=== PATIENT | female | born 1945 | race Caucasian/White ===

== ENCOUNTER 2018-09-21 00:36 | Outpatient (CLI) | payer MEDICARE, BC, SELFPAY ==
--- NOTE | 2018-09-21 08:30 | DI.MAMMO_ITS ---
SYMPTOM/DIAGNOSIS: SCREENING, Z12.31 MAMMOGRAMS: Mammograms were interpreted according to the usual protocol including computer analysis with CAD system, tomosynthesis and C view imaging. Comparison is made with prior examinations. Breast density, Category B. No suspicious masses or microcalcifications are seen. There is no definite evidence of malignancy. IMPRESSION: Negative mammogram. Routine screening is recommended. Category 1. MQSA ASSESSMENT OF FINDINGS: Negative. Category 1. Patient will receive a letter notifying them of these results. BI-RADS category B. There are scattered areas of fibroglandular density.
== END 2018-09-21 00:56 ==
PROVIDERS: PCP Family Medicine; Visit Provider Nurse Practitioner Family
DX: Z12.31 Encounter for screening mammogram for malignant neoplasm of breast (principal)
CPT/HCPCS: 77063; 77067

== ENCOUNTER 2019-02-06 11:38 | Outpatient (REF) | payer MEDICARE, BC, SELFPAY ==
--- NOTE | 2019-02-06 10:44 | SKI_PTH ---
PATIENT: Suyapa Oropeza LOC: [facility] U#:[id number] AGE/SX: 73/F ROOM: RE02/06/[address]: Jhonatan Castro DO : 1945 BED: DIS: 02/06/2019 SPEC #: [id number] RECD: 02/06/19 17:55 STATUS: YURIY REQ #: [id number] MARCELLA: 02/06/19 10:[address]: Jhonatan Castro DEPT: Surgical Specimen RECD BY: July Lopez ENTERED: 02/06/19 17:56 SP TYPE: ESPINOZA WERNER DR: Alpesh Snowden MD Tissues: 1 - SKIN BIOPSY(SHAVE/PUNCH) Procedures: SKIN LEVEL 4 Comments: [id number]
== END 2019-02-06 11:58 ==
LOC: LBN 11:38
PROVIDERS: PCP Family Medicine; Referring Provider Family Medicine; Visit Provider Otolaryngology Otolaryngology/Facial Plastic Surgery
DX: C44.319 Basal cell carcinoma of skin of other parts of face (principal)
CPT/HCPCS: 88305

== ENCOUNTER → 2019-07-03 13:20 | Outpatient (BNVA) | payer MEDICARE, BC, SELFPAY | PROVIDERS: PCP Family Medicine; Referring Provider Family Medicine; Visit Provider Surgery | DX: K40.90 Unilateral inguinal hernia, without obstruction or gangrene, not specified as recurrent (principal) | CPT/HCPCS: 99204; 99215 ==

== ENCOUNTER 2019-07-04 09:13 | Day surgery (SDC) | payer MEDICARE, BC, SELFPAY ==
[2019-07-04] VITALS (7 sets, daily range): BP systolic 94–142; BP diastolic 49–78; PULSE 68–83; RESP 16–24; TEMP 36–36.9; O2SAT 96–100
[2019-07-04] MEDS: Lactated Ringers 1,000 ML 80 ML IV ×2 (10:00→12:38)
--- NOTE | 2019-07-04 10:54 | PDOC.DSDIS_ITS ---
Discharge Plan Disposition Patient Disposition: HOME Condition: Good Discharge Details Reason For Visit: (R) Femoral hernia Attending Provider: Karyn Heredia Primary Care Provider: Alpesh Snowden Home Meds and New Rx's Prescriptions: New hydrocodone-acetaminophen 5-325 mg Tablet 1 tab PO Q4H PRN (Reason: Pain) Qty: 12 RF: 0 Continued multivitamin [Daily Multi-Vitamin] 1 EACH tablet 1 ea PO DAILY RF: 0 aspirin [Aspir-81] 81 mg Tablet,Delayed Release (Dr/Ec) 81 mg PO PRN PRNRF: 0 Discharge Instructions Additional Instructions: The top bandage can be removed tomorrow. The steri strips will usually stick for about a week. When the edges start to curl up, they can be removed. It is okay to shower tomorrow, the water can run over the steri strips Do not swim or soak in a tub for two weeks Call for any concerns including fever, increased pain, vomiting, incision redness or drainage. Do not lift more than 15 pounds for four weeks. Walking and stairs are fine. Do not drive if on narcotic pain meds or if limited by pain. May use Tylenol alternating with ibuprofen for pain control. Ice is also an option. The maximum dose for Tylenol is 4000 mg/day. May use ibuprofen 800 mg every 8 hours as needed. If concerned about constipation, you may use a stool softener or milk of magnesia. Referrals: Karyn Heredia MD [ [facility] STAFF PHYSICIAN] - (Return for a postop visit in 10-14 days) Activity:: Do not lift more than 15 pounds Remove Dressings/Wound Care:: 24 hours Shower/Bathe:: 24 hours Diet:: As Tolerated Discharge Orders Discharge Orders: Discharge Order (Routine); Ordered 07/04/19 Ordered By: Karyn Heredia DS: Diagnosis Discharge Diagnosis (1) Irreducible right femoral hernia: Status: Acute
[2019-07-04] MEDS: Bupivacaine 0.25% Pres-Free 30 ML VIAL (11:50)
[2019-07-04] MEDS: Bupivacaine LIPOSOME/PF 133 MG/10 ML VIAL IJ (11:50)
[2019-07-04] MEDS: ceFAZolin 2 GM/50 ML BAG IVPB (12:07)
--- NOTE | 2019-07-06 10:48 | ROE_ITS ---
REPORT OF OPERATIVE PROCEDURE DATE OF PROCEDURE July 04, 2019 PREOPERATIVE DIAGNOSIS Right inguinal hernia. POSTOPERATIVE DIAGNOSIS Incarcerated right femoral hernia. PROCEDURE Right femoral hernia repair with mesh. SURGEON Karyn Heredia M.D. EXTRUSION DIE COORDINATOR Kerry Yuen ANESTHESIA TAP block, local and general. INDICATIONS This is a 73-year-old woman who noted a sudden appearance of a tender lump in her right groin. On examination, this was not reducible, but there was no evidence of bowel present. PROCEDURE She was placed supine on the operating table and after induction of general anesthetic had, a right TAP block placed. Her right groin was then prepped and draped sterilely. An incision was made between the ASIS and pubic tubercle after injecting local anesthetic. The subcutaneous tissue was divided with cautery. Any encountered veins were clamped, divided and ligated with #3-0 Vicryl ties. The external oblique fascia was reached and a lump was evident below this. This was about 2 cm in size. This was dissected free of the surrounding subcutaneous tissue and came from the femoral region just medial to the femoral vein. This contained fat. This was too large to reduce through the defect, which itself measured only about 8 mm. I extended the fascial opening medially a few millimeters and was able to reduce the fat into the femoral canal. I used a small mesh plug and removed all the internal leaflets to make it smaller in size. This fit appropriately into the defect. This was sutured using a #2-0 Prolene stitch in the superior medial and inferior locations. There was good hemostasis so the soft tissue was closed with interrupted #3-0 Vicryl sutures and the skin closed with a running #4-0 Monocryl subcuticular stitch. She tolerated the procedure well and was stable to recovery.
== END 2019-07-04 15:23 | disposition home or self-care (01) ==
PROVIDERS: PCP Family Medicine; Visit Provider Surgery
PROC: (CPT 49553; principal; 2019-07-04 10:45)
DX: K41.30 Unilateral femoral hernia, with obstruction, without gangrene, not specified as recurrent (principal); G89.18 Other acute postprocedural pain
CPT/HCPCS: 49553; 76942; C1781; J0690; J1100; J1885; J2001; J2250; J2405; J2704

== ENCOUNTER → 2019-07-17 08:55 | Outpatient (BNVA) | payer MEDICARE, BC, SELFPAY | PROVIDERS: PCP Family Medicine; Referring Provider Family Medicine; Visit Provider Surgery | DX: Z48.815 Encounter for surgical aftercare following surgery on the digestive system (principal) ==

== ENCOUNTER 2019-11-13 02:00 | Outpatient (CLI) | payer MEDICARE, BC, SELFPAY ==
--- NOTE | 2019-11-13 12:18 | DI.MAMMO_ITS ---
EXAM: MAMMO SCREENING CLINICAL HISTORY: screening,z12.39 TECHNIQUE: Mammograms were interpreted according to the usual protocol including computer analysis w [employer] CAD system, tomosynthesis and C-view imaging. COMPARISON: FINDINGS: The breasts are of moderate density with fairly symmetrical distribution of fibroglandular tissue. N o dominant mass or clumped microcalcification is identified in either breast. Current examination is compared with previous examinations including September 2018 and there has been no gross interval change appearance comparison the previous studies IMPRESSION: . no specific evidence of malignancy at this time. Routine screening examinations are suggested year ly intervals due to the family history of breast carcinoma. Category: BI-RADS Cat 1 - Negative Breast Density - Category B - Scattered areas of fibroglandular density
== END 2019-11-13 02:20 ==
PROVIDERS: PCP Family Medicine; Visit Provider Nurse Practitioner Family
DX: Z12.31 Encounter for screening mammogram for malignant neoplasm of breast (principal); Z80.3 Family history of malignant neoplasm of breast
CPT/HCPCS: 77063; 77067

== ENCOUNTER 2020-05-16 03:18 | Outpatient (CLI) | payer MEDICARE, BC, SELFPAY ==
[2020-05-16 07:45] LABS: Abs Immature Grans 0.01 10^3/uL (0.0-0.06); Absolute Basophil Count 0.03 10^3/uL (0.0-0.2); Absolute Eosinophil Count 0.11 10^3/uL (0.0-0.7); Absolute Lymphocyte Count 1.29 10^3/uL (1.2-3.4); Absolute Monocyte Count 0.62 10^3/uL (0.1-0.8); Absolute Neutrophil Count 1.87 10^3/uL (1.2-6.7); Basophils % 0.8; Eosinophils % 2.8; HCT 43.9 % (36.0-46.0); HGB 14.6 g/dL (11.2-15.7); Immature Grans % 0.3; Lymphocytes % 32.8; MCH 32.5 pg (27.0-33.0); MCHC 33.3 % (32.0-36.0); MCV 97.8 fL (80-95); MPV 10.3 fL (8.0-11.0); Monocytes % 15.8; Neutrophils % 47.5; Nucleated RBC 0 %; Platelet Count 209 10^3/uL (130-400); RBC 4.49 10^6/uL (3.93-5.22); RDW 13.1 % (11.7-14.6); RDW-SD 47.2 fL; WBC 3.93 10^3/uL (4.4-10.8)
[2020-05-16 08:06] LABS: ALT 22 U/L (14-59); AST 17 U/L (15-37); Albumin 3.8 g/dL (3.4-5.0); Alkaline Phosphatase 78 U/L (46-116); Anion Gap 6.2 mmol/L (3-11); BUN 22 mg/dL (7-18); Bilirubin, Total 0.5 mg/dL (0.2-1.0); CO2 30.8 mmol/L (21.0-32.0); CREATININE 0.85 mg/dL (0.55-1.02); Calcium 8.7 mg/dL (8.5-10.1); Chloride 103 mmol/L (98-107); Glucose 103 mg/dL (74-106); Potassium 4.4 mmol/L (3.5-5.1); Sodium 140 mmol/L (136-145); Total Protein 7.3 g/dL (6.4-8.2)
== END 2020-05-16 03:38 ==
PROVIDERS: Family Medicine; PCP Nurse Practitioner; Visit Provider Nurse Practitioner
DX: R19.7 Diarrhea, unspecified (principal)
CPT/HCPCS: 36415; 80053; 85025

== ENCOUNTER 2020-07-31 13:56 | Outpatient (REF) | payer MEDICARE, BC, SELFPAY ==
--- NOTE | 2020-07-31 13:39 | SKI_PTH ---
PATIENT: Suyapa Oropeza LOC: [facility] U#:[id number] AGE/SX: 74/F ROOM: RE07/31/[address]: JOHANA Snow : 1945 BED: DIS: 07/31/2020 SPEC #: [id number] RECD: 08/01/20 12:54 STATUS: YURIY REQ #: [id number] MARCELLA: 07/31/20 13:[address]: Harris Aldrich DEPT: Surgical Specimen RECD BY: July Lopez ENTERED: 08/01/20 12:56 SP TYPE: ESPINOZA WERNER DR: Colette Ellison, PhD [employer] Tissues: 1 - SKIN BIOPSY(SHAVE/PUNCH) 2 - SKIN BIOPSY(SHAVE/PUNCH) 3 - SKIN BIOPSY(SHAVE/PUNCH) 4 - SKIN BIOPSY(SHAVE/PUNCH) Procedures: SKIN LEVEL 4 Comments: [id number]
== END 2020-07-31 13:57 | disposition home or self-care (01) ==
LOC: LBN 13:56
PROVIDERS: PCP Nurse Practitioner; Visit Provider Physician Assistant
DX: C44.311 Basal cell carcinoma of skin of nose (principal); D22.5 Melanocytic nevi of trunk; D22.61 Melanocytic nevi of right upper limb, including shoulder; L82.1 Other seborrheic keratosis
CPT/HCPCS: 88305

== ENCOUNTER 2020-08-08 03:17 | Outpatient (CLI) | payer MEDICARE, BC, SELFPAY ==
[2020-08-08 08:37] LABS: Calculated LDL 132 mg/dL (<100); Cholesterol 252 mg/dL (<200); HDL Cholesterol 108 mg/dL (40-60); Triglyceride 60 mg/dL (<150)
== END 2020-08-08 03:18 | disposition home or self-care (01) ==
LOC: LBO 03:17
PROVIDERS: PCP Nurse Practitioner; Visit Provider Nurse Practitioner
DX: E78.89 Other lipoprotein metabolism disorders (principal); Z13.6 Encounter for screening for cardiovascular disorders
CPT/HCPCS: 36415; 80061

== ENCOUNTER 2020-11-18 02:49 | Outpatient (CLI) | payer MEDICARE, BC, SELFPAY ==
--- NOTE | 2020-11-18 07:00 | DI.MAMMO_ITS ---
Exam(s) MAMMO SCREENING EXAM: MAMMO SCREENING CLINICAL HISTORY: screening,Z12.39 TECHNIQUE: Bilateral full field digital CC and MLO mammographic images were obtained with 3D tomosyn thesis and utilizing computer aided detection (CAD). COMPARISON: Available for comparison. FINDINGS: Masses/Architectural Distortion: None seen. Microcalcifications: No suspicious pleomorphic-type are seen. Skin Thickening/Nipple Retraction: None. IMPRESSION: 1. No significant interval change with no specific features of malignancy noted. 2. Unless there is more urgent need, screening mammography is recommended, as per [employer] guidelines. BI-RADS Category 1 - Negative Breast Density - Category B - Scattered areas of fibroglandular density Breast density category C or D implies that the patient has dense breast tissue. Dense breast tissue is very common and is not abnormal but dense breast tissue can make it harder to find cancer on a ma mmogram. Also, dense breast tissue may increase their breast cancer risk. This information about the result of the mammogram report was provided to the patient to raise their awareness. Use this report when you speak with the patient about their risks for breast cancer, which includes their family hist ory. At that time, you may recommend for more screening tests (Ultrasound or MRI) as they might be us eful based on their risk. A negative radiographic report should not delay biopsy if a dominant or clinically suspicious mass is present. Up to ten percent of cancers are not identified on mammography. A negative report may reinforce clinical impression. Adenosis and dense breasts may obscure an underlying neoplasm. False positive reports average 6 to 10%. Patient will receive a letter notifying them of these results.
== END 2020-11-18 03:09 ==
PROVIDERS: PCP Nurse Practitioner; Visit Provider Nurse Practitioner
DX: Z12.31 Encounter for screening mammogram for malignant neoplasm of breast (principal)
CPT/HCPCS: 77063; 77067

== ENCOUNTER → 2021-08-01 09:53 | Outpatient (BNVA) | payer MEDICARE, BC, SELFPAY | PROVIDERS: PCP Nurse Practitioner; Referring Provider Nurse Practitioner; Visit Provider Student in an Organized Health Care Education/Training Program | DX: M72.0 Palmar fascial fibromatosis [Dupuytren] (principal) | CPT/HCPCS: 99213 ==

== ENCOUNTER 2021-09-18 01:03 | Outpatient (CLI) | payer MEDICARE, BC, SELFPAY ==
--- NOTE | 2021-09-18 07:45 | DI.US_ITS ---
Exam(s) US PELVIS TRANSVAGINAL EXAM: US PELVIS TRANSVAGINAL CLINICAL HISTORY: pelvic pain,RLQ PAIN,R10.31,R10.2. TECHNIQUE: Transabdominal and transvaginal pelvic ultrasound was performed using standard protocol. COMPARISON: CT ABD PELVIS WITH CONTRAST from 03/29/2016 MR MRI ABDOMEN WO,W from 08/10/2016 FINDINGS: KIDNEYS: Kidneys are symmetric in size. No evidence of renal calculi. No evidence of hydronephrosis. There is a 5.1 x 4.5 x 4.8 cm right renal cyst. This was present on the CT scan from 03/29/2016. UTERUS: Position: Anteverted. Size: 4.5 long by 2.2 AP by 3.3 transverse cm Endometrium: 0.3 cm. Normal for patient's menstrual status. Myometrium: Unremarkable. Cervix: Unremarkable. OVARIES: There is a multi-septated cystic and solid mass in the right adnexa measuring 8.0 x 4.0 x 8. 0 cm. It is likely ovarian in origin. A discrete separate right ovary is not visualized. The left ovary was not visualized transabdominally or transvaginally. No left adnexal mass is seen. No blood flow is seen on the images provided. CUL-DE-SAC: Free fluid: None. Other: None. IMPRESSION: 1. Stable right renal cyst. 2. Normal-appearing uterus with endometrial stripe within normal limits. 3. Cystic and solid right adnexal mass measuring 8 x 4 x 8 cm. This is probably of ovarian origin. Neoplasm should be considered. MRI may be considered for further evaluation. DATA REPOSITORY:
== END 2021-09-18 01:23 ==
PROVIDERS: PCP Nurse Practitioner; Visit Provider Nurse Practitioner
DX: R10.2 Pelvic and perineal pain (principal); R10.31 Right lower quadrant pain; N28.1 Cyst of kidney, acquired; N83.291 Other ovarian cyst, right side; R19.09 Other intra-abdominal and pelvic swelling, mass and lump
CPT/HCPCS: 76830; 76856

== ENCOUNTER 2021-10-07 05:28 | Outpatient (CLI) | payer MEDICARE, BC, SELFPAY ==
[2021-10-07 14:58] LABS: CREATININE 0.8 mg/dL (0.55-1.02)
[2021-10-08 11:27] LABS: CA 125 47 U/mL (<30)
== END 2021-10-07 05:29 | disposition home or self-care (01) ==
LOC: LBO 05:28
PROVIDERS: Nurse Practitioner Family; PCP Nurse Practitioner; Visit Provider Nurse Practitioner
DX: N94.89 Other specified conditions associated with female genital organs and menstrual cycle (principal)
CPT/HCPCS: 36415; 86304; 82565

== ENCOUNTER → 2021-10-09 02:10 | Outpatient (CLI) | payer MEDICARE, BC, SELFPAY ==
--- NOTE | 2021-10-09 06:45 | DI.CT_ITS ---
Exam(s) CT ABDOMEN PELVIS W EXAM: CT ABDOMEN PELVIS W INDICATION: f/u abnl us showing rt adnexal mass,n94.89. COMPARISON: CT ABD PELVIS WITH CONTRAST from 03/29/2016 TECHNIQUE: FINDINGS: CT examination of the abdomen and pelvis was performed with a bolus infusion of 100 cc of Omnipaque 3 50. Images obtained through the lung bases are unremarkable. Note is made fluid attenuation elongated mass in the duodenum, question duodenal wall cyst. This als o appears to been present on prior CT of March 2016, correlation with duodenitis could be is recomm ended to exclude neoplastic process. The liver is unremarkable in appearance except for a stable presumed right lobe hepatic cyst.. Gallbladder has been surgically removed, bile ducts are CT normal. Pancreas appears normal. Spleen is unremarkable in appearance. Adrenals appear normal. The kidneys are unremarkable except for a stable 5 cm in diameter lower pole right renal cyst with no evidence of hydronephrosis, nephrolithiasis, or renal mass.. Urinary bladder unremarkable. Abdominal aorta is of normal diameter and no major vascular abnormality is seen. No abdominal wall hernia. No abdominal or pelvic adenopathy. There is multi cystic mass identified in the pelvis consistent with recent ultrasound findings of the right adnexal multi cystic mass period no gross pelvic adenopathy. No free pelvic fluid.. Appendix is not specifically visualized but there is no evidence of appendicitis. There are a few mi ldly enlarged pericecal lymph nodes. No evidence of diverticulitis or bowel obstruction. There is a question of asymmetric wall thickening of the rectosigmoid, inflammatory or neoplastic pro cess not excluded. Colonoscopy suggested for further evaluation. IMPRESSION: Multi cystic pelvic mass, highly suspicious for neoplasm. Question asymmetric wall thickening of rectosigmoid, neoplasm not excluded, correlation with colonosc opy recommended. Low-attenuation suspected intraluminal duodenal mass, correlation with duodenal scope be recommended. RADIATION DOSE DELIVERED: 621.27mGy.cm Total DLP 621.27mGy.cm Total DLP !Error CTDIvol RADIATION OPTIMIZATION: All CT scans at this facility use at least one of these dose optimization te chniques: automated exposure control; mA and/or kV adjustment per patient size (includes targeted exa ms where dose is matched to clinical indication); or iterative reconstruction.
[2021-10-09] MEDS: Breeza Beverage 473 ML BTL PO ×2 (07:52→07:53)
[2021-10-09] MEDS: Omnipaque 350 MG/ML 50 ML BTL PO (07:52)
[2021-10-09] MEDS: Omnipaque 350 MG/ML 100 ML BTL IJ (08:55)
== END ==
PROVIDERS: PCP Nurse Practitioner; Visit Provider Nurse Practitioner Family
DX: N94.89 Other specified conditions associated with female genital organs and menstrual cycle (principal); R19.09 Other intra-abdominal and pelvic swelling, mass and lump; K31.89 Other diseases of stomach and duodenum
CPT/HCPCS: 74177; J3490; Q9967

== ENCOUNTER → 2021-10-20 14:22 | Outpatient (BNVA) | payer MEDICARE, BC, SELFPAY | PROVIDERS: PCP Nurse Practitioner; Referring Provider Nurse Practitioner; Visit Provider Surgery | DX: R10.31 Right lower quadrant pain (principal); R10.2 Pelvic and perineal pain; R93.89 Abnormal findings on diagnostic imaging of other specified body structures; R93.3 Abnormal findings on diagnostic imaging of other parts of digestive tract; N94.89 Other specified conditions associated with female genital organs and menstrual cycle; K59.00 Constipation, unspecified; K57.30 Diverticulosis of large intestine without perforation or abscess without bleeding | CPT/HCPCS: 99215; 99243 ==

== ENCOUNTER 2021-10-22 01:00 | Outpatient (CLI) | payer MEDICARE, BC, SELFPAY ==
[2021-10-22 09:52] LABS: Source Nasal/Nares
[2021-10-22 14:17] LABS: COVID-19 PCR Negative (Negative)
== END 2021-10-22 01:01 | disposition home or self-care (01) ==
LOC: LBO 01:00
PROVIDERS: PCP Nurse Practitioner; Visit Provider Surgery
DX: Z20.822 Contact with and (suspected) exposure to COVID-19 (principal); Z01.818 Encounter for other preprocedural examination
CPT/HCPCS: 87635; U0005

== ENCOUNTER 2021-10-24 06:10 | Day surgery (SDC) | payer MEDICARE, BC, SELFPAY ==
--- NOTE | 2021-10-23 16:09 | COLE_ITS ---
Colonoscopy Report Date of procedure: 10/24/21 Pre-op diagnosis general: abnl Ct scan: rectal-sigmoid thickening/ R ovarian mas s. Post-op diagnosis procedure note: other (Diverticula/partial rectal prolapse external hemorrhoids/) Surgeon: Ammy Lama Anesthesia Type: General:No Airway Estimated blood loss (mL): 0 Pathology: none sent Complications: None Disposition: same day Prep: Miralax/Dulcolax Retraction Time: 10 Procedure Description: After informed consent was obtained the patient was taken to the procedure room and placed in a left decubitous position. Monitors were applied and a time out was done. The patients name, date of , procedure, allergies to medications and metal in their body was reviewed. The patient was then sedated. Once sedated and comfortable a rectal exam was done. External exam shows: External hemorrhoids and partial mucosal prolapse. There is some mild bleeding. There is no ulceration. She has very poor sphincter tone. no palpable masses. The scope was then introduced and retrofelexed. no internal hemorrhoids were identified. The scope was then advanced to the cecum without difficulty. The TI and appendiceal orifice were identified. The prep was the BPS 3 in the rectosigmoid and transverse colon and 2 in the right colon and cecum, for a total 8. the scope was then slowly retracted over 10 minutes back into the rectum. No polyps are visualized today. She has minor to moderate diverticular disease of the sigmoid colon. There is no signs of active bleeding or infection. There is no sign of any tumor eroding into the colon. The area of abnormality that was noted in the rectosigmoid junction, I think is from the mucosal prolapse. The scope was removed and the patient was woken up and taken back to Same day surgery in stable condition. hydrocortisone ointment was applied to the rectal prolapse. There is no ulcerations. The patient tolerated the procedure well and there were no immediate complications. Follow up: The patient does not require any further routine screening colonoscopies, years unless they develop changes in bowel habits or other new gastrointestinal complaints.
--- NOTE | 2021-10-23 16:12 | W.PM.ENDDOP ---
Date of service: 10/24/21 Time of Service: 09:26 Endoscopy Report DATE OF PROCEDURE: 10/24/21 PRE-OP DIAGNOSIS: abnl CT- poss mass in duodenum POST-OP DIAGNOSIS: other (Small hiatal hernia/mild esophagitis/bile reflux/polyp in the duodenal bulb) SURGEON: Ammy Lama ANESTHESIA TYPE: General:No Airway ESTIMATED BLOOD LOSS: 1 PATHOLOGY: other COMPLICATIONS: None DISPOSITION: same day PROCEDURE DESCRIPTION: After informed consent was obtained the patient was take to the procedure room and placed in a supine position. Monitors were applied and a time out was done. The patients name, date of , procedure type, allergies to medications and metal in their body was reviewed. A bite block was placed and the patient was sedated. Once sedated and comfortable the gastroscope was advanced through the oropharynx which was grossly normal into the esophagus. The proximal and mid-esophagus were nl. In the distal esophagus there was small hiatal hernia and mild esophagitis noted. There are no esophageal erosions/diverticula/strictures/varices. The scope was advanced into the stomach and through the pylorus into the 3rd portion of the duodenum. In duodenum, was noted to be a 2 cm polyp on a stalk. This is proximal to the bile ducts. Biopsies were done, all specimens are retrieved and no bleeding is noted.. The scope was retracted back into the stomach and biopsies were done to rule out H. pylori. There were no ulcers. There is bile reflux into the stomach. There is some may be mild erosion in the antrum. There was a area of irregularity in the antrum, at the 11 o'clock position. it looks like a adenomatous polyp. This was biopsied. The scope is retroflexed. The cardia and fundus were noted to be normal. There 1 cm sliding-type hiatal hernia noted. The scope was retracted back into the esophagus and biopsies were done of the GE junction to rule out Lazar's. The Z line was regular. The GE junction was at 36 cm. The scope was removed and the patient was woken up and taken back to [facility] in stable condition. Follow up: 1 week's time to review biopsy results and to discuss if removal of the polyp is necessary.
--- NOTE | 2021-10-23 16:13 | PDOC.DSDIS_ITS ---
Discharge Plan Disposition Patient Disposition: HOME Condition: Good Discharge Details Reason For Visit: stomach and colon scopes Attending Provider: Ammy Lama Primary Care Provider: Colette Ellison Home Meds and New Rx's Prescriptions: New hydrocortisone 2.5 % cream 1 applic topical QID PRNQty: 30 12RF No Action Shingrix (PF) 50 mcg/0.5 mL suspension for reconstitution 0.5 ml IM ONCE Qty: 1 1RF Rx Instructions: as a single dose multivitamin [Daily Multi-Vitamin] 1 EACH tablet 1 ea PO DAILY Discharge Instructions Instructions: Rectal Prolapse (GEN), Diverticulosis Diet (GEN), Diverticulosis (GEN) Additional Instructions: DSU Colonoscopy Post- Op Instructions Instructions for Everyone who is given Anesthesia: For your safety, please do the following for the next twenty-four (24) hours: *Do Not operate a motor vehicle (car, truck, motorcycle, etc.) *Do Not drink alcoholic beverages or use any recreational drugs for the first 24 hours or while taking pain medications. The medications in your body may have a reaction that can be dangerous. *Do Not make any important decisions or sign any important papers. Findings: polyp in duodenum bile reflux sigmoid diverticula rectal prolapse Follow up: 1wk 1. No lifting over 20 pounds or strenuous activity for the first 24 hours after your procedure. After 24 hours there are no restrictions on your activity but you may feel fatigued for a few days. 2. After you arrive home you may have a light meal and return to your normal diet as you can tolerate it without feeling sick to your stomach. 3. You may have a bloated, gaseous feeling in your belly (abdomen) after a colonoscopy. Passing gas and belching will help. Walking or lying down on your left side with your knees flexed may relieve the discomfort. 4. A sore throat which you can treat with throat lozenges or by gargling with salt water 4-5 times a day. Call the office at [phone] (Office) or [phone] (Hospital) right away if you notice any of the following: a.Vomiting of blood or ?coffee ground stools?. b.Rectal bleeding 1Tbsp, blood clots or continuous bleeding. c.Severe belly (abdominal) pain. d.A hard distended belly (abdomen) and an inability to pass gas. 4. Please don?t expect to have a normal BM (bowel movement) for 2-3 days after your procedure. 5. If there are questions regarding the findings of your procedure, please contact your doctor 6. If you are unable to contact your doctor with a problem, contact the hospital at [phone]. 7. Continue all your regular medications unless directed otherwise. I understand the above instructions and have no questions. Signature of Patient or Adult Escort Name of Responsible Adult Escort Signature of Nurse Date/Time Activity:: See above Diet:: See above Discharge Orders Discharge Orders: Discharge Order (Routine); Ordered 10/23/21 Ordered By: Ammy Lama
[2021-10-24 06:32] VITALS: BP 149/77; PULSE 82; RESP 14; TEMP 36.8; O2SAT 99
[2021-10-24] MEDS: Lactated Ringers 1,000 ML 80 ML IV (06:52)
--- NOTE | 2021-10-24 06:59 | W.ANESPRE ---
General Info Date of Service Date Performed: 10/24/21 Height: 5 ft 5.25 in Weight: 54.7 kg Body Mass Index (BMI): 19.9 Surgical Procedure: Operation Date: 10/24/21 07:35 Proposed Procedure Side Surgeon p Colonoscopy/Gastroscopy Ammy Lama, Meds Allergies and Home Medications Allergies Allergy/AdvReac Type Severity Reaction Status Date / Time meperidine AdvReac Severe Nausea; Verified 10/22/21 14:22 VOMITING midazolam [From Versed] AdvReac Severe vomiting Verified 10/22/21 14:22 codeine AdvReac Unknown HALLUCINATI Verified 10/22/21 14:22 ONS Home Medication Medication Instructions Recorded multivitamin (Daily Multi-Vitamin 1 ea PO DAILY 07/17/16 tablet) varicella-zoster glycoE [id number] 0.5 ml IM ONCE #1 ea 07/09/20 adj(PF) 50 mcg/0.5 mL IM susp, kit (Shingrix (PF)) Current Visit Medications: Current Medications Generic Name Dose Route Start Last Admin Trade Name Tonyq PRN Reason Stop Dose Admin Hyoscyamine Sulfate 0.125 mg 10/23/21 16:08 Hyoscyamine 0.125 Mg Sl/Oral/Chew SL DIRECTED PRN Ringer's Solution 1,000 mls @ 80 mls/hr 10/24/21 06:00 10/24/21 06:52 IV 11/22/21 23:59 80 mls/hr INFUSION JACQUELINE Administration IV Miscellaneous Supplies 1 each 10/24/21 06:00 Iv Access IV 11/22/21 23:59 DIRECTED JACQUELINE Ondansetron HCl 4 mg 10/23/21 16:08 Ondansetron 4 Mg/2 Ml Vial IVP Q4H PRN PRN Nausea / Vomiting Sodium Chloride 0 ml 10/24/21 06:00 Normal Saline Flush 10 Ml Syr IV 11/22/21 23:59 PRN PRN Sodium Chloride 0 ml 10/24/21 06:00 Normal Saline 10 Ml Vial IJ 11/22/21 23:59 DIRECTED PRN Sterile Water 0 ml 10/24/21 06:00 Water,Injection,Sterile 10 Ml Vial IJ 11/22/21 23:59 DIRECTED PRN PFSH Active Problems Active Problems: Problem Status Onset Code Family history of breast cancer Z80.3 History of basal cell carcinoma (BCC) of skin Z85.828 Dupuytren's contracture of right hand M72.0 RLQ abdominal pain R10.31 Pelvic pain R10.2 Constipation K59.00 Mass of uterine adnexa ~09/2021 N94.89 Diverticula of colon K57.[address] scan, gastrointestinal tract R93.3 Medical History Medical History Diverticulitis of colon (without mention of hemorrhage) 08/21 DIVERTICULITIS W/ MICROPERFORATION OF RECTOSIGMOID; EXPL. LAP W/ IRRIGATION & DRAIN PLACED; POSTOP C. DIFFICILE; DR. JETT. History of basal cell carcinoma of skin Unspecified hemorrhoids 3/ DIVERTICULITIS W/ MICROPERFORATION OF RECTOSIGMOID; EXPL. LAP W/ IRRIGATION & DRAIN PLACED; POSTOP C. DIFFICILE; DR. JETT. Surgical History Surgical History (Updated 10/24/21 @ 06:39 by Nadege Hartmann RN) Appendectomy (~08/2009) section Cholecystectomy (03/29/16) Hemorrhoidectomy Hx of arthroscopy of right knee flipped meniscus Hx of colonoscopy Hx of exploratory laparotomy Hx of hernia repair Ligation of fallopian tube Tobacco Smoking/Tobacco Use Status: Never Passive smoking exposure: Yes Second hand exposure: Yes Alcohol Alcohol Intake: current Alcohol intake frequency: 0-2 drinks per day Alcohol type: wine Substance Use Substance use: Never Substance use type: does not use Details: alcohol: t-1, one glass Prental History History 1 Para 1 Hx # Term Pregnancies Multiple births Hx # Pregnancies Ectopic pregnancies AB induced Hx Number of Living Children AB spontaneous Vital Signs and Lab Results Vital Signs Most Recent Vital Signs in EMR: Most Recent Vital Signs Temp Pulse Resp BP Pulse Ox 36.8 C 82 14 149/77 H 99 10/24/21 06:32 10/24/21 06:32 10/24/21 06:32 10/24/21 06:32 10/24/21 06:32 Lab Results Blood Type / Crossmatch: No Data to Display Complete Blood Count: No Data to Display Complete Metabolic Panel: Creatinine 0.8 mg/dL (0.55-1.02) 10/07/21 14:46 Estimated GFR/1.73 m2 >= 60.00 (mL/min/1.73m2) 10/07/21 14:46 Liver Function Panel: No Data to Display Coagulation Panel: No Data to Display Cardiac Panel: No Data to Display Arterial Blood Gas: No Data to Display Venous Blood Gas: No Data to Display Pancreas Panel: No Data to Display Thyroid Panel: No Data to Display Infectious Disease: Coronavirus (COVID-19)(PCR) Negative (Negative) 10/22/21 08:45 Coronavirus 2019 Source Nasal/Nares 10/22/21 08:45 Blood Cultures: No Data to Display Toxicology Panel: No Data to Display Anesthesia Assessment and Plan Anesthesia History Personal History: PONV Family History: No Family History of Anesthesia Complications Exercise Tolerance Exercise Tolerance: Metabolic Equivalents>4 Pertinent Negatives Pertinent Negatives: No Symptoms of GERD, No Major Cardiovascular Symptoms or Complaints, No Major Pulmonary Symptoms or Complaints and No History of CVA/TIA Cardiac & Pulmonary Exam Cardiac Exam: Normal S1/S2 Heart Sounds Pulmonary Exam: Clear Bilateral Breath Sounds Implantable Cardiac Device Does patient have a Pacemaker or an ICD?: No Airway Exam Known Difficult Airway: No Mallampati Class: 4 Mouth Opening: Normal (> 3cm) Thyromental Distance: Greater than 3 cm Neck Range of Motion: Full ROM Neck Circumference: Normal Teeth Condition: Normal Dentition ASA Classification ASA Score: ASA 2 Emergency Case?: No NPO Status NPO Status: NPO Clears >2 hours, Solids >8 hours Anesthesia Plan Resuscitation Status: Full Code Anesthesia Technique: General Anesthesia Airway Planned: Natural Airway Monitors Used: Standard Monitors
[2021-10-24 07:02] VITALS: BMI 19.9
--- NOTE | 2021-10-24 07:47 | BOWEL_PTH ---
PATIENT: Suyapa Oropeza LOC: [facility] U#:[id number] AGE/SX: 76/F ROOM: RE10/24/[address]: mAmy Lama : 1945 BED: DIS: 10/24/2021 SPEC #: [id number] RECD: 10/24/21 08:58 STATUS: YURIY RE #: [id number] MARCELLA: 10/24/21 07:[address]: Ammy Lama DEPT: Surgical Specimen RECD BY: Sharee Rao ENTERED: 10/24/21 09:04 SP TYPE: Bowel OTHR DR: Colette Ellison, PhD CRIME SCENE EXAMINER Tissues: 1 - BIOPSY BOWEL 2 - BIOPSY BOWEL 3 - BIOPSY BOWEL 4 - STOMACH BIOPSY 5 - STOMACH BIOPSY 6 - STOMACH BIOPSY 7 - ESOPHAGUS BIOPSY 8 - ESOPHAGUS BIOPSY Procedures: GROSS AND MICRO LEVEL 4 Comments: [id number]
[2021-10-24 08:34] VITALS: BP 126/81; PULSE 101; RESP 18; TEMP 36.4; O2SAT 98
--- NOTE | 2021-10-24 08:43 | W.ANESPOSTOP ---
Postoperative Evaluation Date, Time and Location Date Performed: 10/24/21 Time Performed: 07:43 Patient Location: Day Surgery Unit Vital Signs Most Recent Imported Vital Signs: Most Recent Vital Signs Temp Pulse Resp BP Pulse Ox 36.8 C 82 14 149/77 H 99 10/24/21 06:32 10/24/21 06:32 10/24/21 06:32 10/24/21 06:32 10/24/21 06:32 Most Recent Manually Entered Vital Signs: Adult Blood Pressure: 126/81 Heart Rate: 93 Respirations: 11 Oxygen Saturation (%): 99 Temperature (C): 36.4 C Pain Score (0-10 Scale): 0 Pain Score Most Recent Pain Score: Most Recent Pain Score Pain Level 0 10/24/21 06:32 Assessment Mental Status: Awake (Alert & Oriented to Patient Baseline) Airway and Respiratory Function: Patent airway with normal (patient baseline) respiratory exam Cardiovascular Function: Hemodynamically Stable Hydration Status: Adequately Hydrated Nausea & Vomiting: No Nausea or Vomiting Pain: Pt. Denies Any Pain Peripheral Nerve Block: Patient did not receive a nerve block
[2021-10-24 08:44] VITALS: BP 126/81; PULSE 93; RESP 11; TEMPC 36.4; O2SAT 99
[2021-10-24 09:31] VITALS: BP 138/62; PULSE 84; RESP 14; TEMP 36.2; O2SAT 99
== END 2021-10-24 10:08 | disposition home or self-care (01) ==
PROVIDERS: PCP Nurse Practitioner; Visit Provider Surgery
PROC: (CPT 43239; principal; 2021-10-24 07:30)
DX: R93.3 Abnormal findings on diagnostic imaging of other parts of digestive tract (principal); K57.30 Diverticulosis of large intestine without perforation or abscess without bleeding; K62.3 Rectal prolapse; K64.4 Residual hemorrhoidal skin tags; K31.7 Polyp of stomach and duodenum; K44.9 Diaphragmatic hernia without obstruction or gangrene; K22.89 Other specified disease of esophagus; K31.89 Other diseases of stomach and duodenum
CPT/HCPCS: 43239; 45378; 88305

== ENCOUNTER → 2021-11-03 11:01 | Outpatient (BNVA) | payer MEDICARE, BC, SELFPAY | PROVIDERS: PCP Nurse Practitioner; Referring Provider Nurse Practitioner; Visit Provider Surgery | DX: Z09 Encounter for follow-up examination after completed treatment for conditions other than malignant neoplasm (principal) | CPT/HCPCS: 99213 ==

== ENCOUNTER → 2021-11-20 01:44 | Outpatient (CLI) | payer MEDICARE, BC, SELFPAY ==
--- NOTE | 2021-11-20 08:00 | DI.DEXA_ITS ---
Exam(s) XR DEXA BONE DENSITY W/WO CHRISTIE EXAM: XR DEXA BONE DENSITY W/WO CHRISTIE CLINICAL HISTORY: screening for osteoporosis in postmenopausal woman,z78.0 TECHNIQUE: Routine DEXA evaluation of the lumbar spine, hip, or forearm. COMPARISON: Compared to prior DEXA scan of 2006 FINDINGS: Performed on a [employer] unit. Lateral image: No compression fracture evident. Lumbar Spine total T-score: Minus- 2.8. Prior reading in 2006 was -1.3 Hip total T-score:-1.6. Prior reading in 2006 was 0.0 Independent reading at the level of the femoral neck yields at T-score of -2.4. Forearm total T-score: -2.7 IMPRESSION: Bone mineral density measures in the osteoporosis range. Fracture risk is high. Note: Any spine fracture indicates 5x risk for subsequent spine fracture and 2x risk for subsequent h ip fracture. World Health Organization criteria for BMD interpretation classify patients: Normal...... T- Score at or above -1.0 Osteopenic... T- Score between -1.0 and -2.5 Osteoporosis... T-Score at or below -2.5
--- NOTE | 2021-11-20 15:45 | DI.MAMMO_ITS ---
Exam(s) MAMMO SCREENING EXAM: MAMMO SCREENING CLINICAL HISTORY: screening,z12.39. TECHNIQUE: Bilateral full field digital CC and MLO mammographic images were obtained with 3D tomosyn thesis and utilizing computer aided detection (CAD). COMPARISON: Prior mammograms were reviewed, the most recent being NOVEMBER 2020. FINDINGS: There has been no significant change in the appearance and distribution of the fibroglandular tissue. Asymmetric density medial of center in the left breast is unchanged. There are no new spiculated masses nor malignant appearing microcalcification groups. A benign macro calcification which appears to be associated with a small nodule in the left breast is unchanged, probably a small fibroadenoma. There are no malignant-appearing microcalcification group s. There is no significant architectural distortion nor skin thickening-retraction. IMPRESSION: Stable benign-appearing findings. No radiographic evidence of malignancy. BI-RADS Category 2 - Benign Findings Breast Density - Category B - Scattered areas of fibroglandular density Breast density Category C or D implies that the patient has dense breast tissue. Dense breast tissue can make it harder to find cancer on a mammogram. Dense breast tissue is also associated with an incr eased risk of breast cancer. This information about the result of the mammogram report was provided to the patient to raise their awareness. Use this report when you speak with the patient about their risks for breast cancer, which includes their family history. At that time, you may recommend additional screening tests (Ultrasoun d or MRI) as these tests may add significant information. A negative radiographic report should not delay biopsy if a dominant or clinically suspicious mass is present. Up to ten percent of cancers are not identified on mammography. A negative report may reinforce clinical impression. Adenosis and dense breasts may obscure an underlying neoplasm. False positive reports average 6 to 10%. Patient will receive a letter notifying them of these results.
== END ==
PROVIDERS: PCP Nurse Practitioner; Visit Provider Nurse Practitioner
DX: Z78.0 Asymptomatic menopausal state (principal); Z12.31 Encounter for screening mammogram for malignant neoplasm of breast; R92.8 Other abnormal and inconclusive findings on diagnostic imaging of breast; Z13.820 Encounter for screening for osteoporosis; M81.0 Age-related osteoporosis without current pathological fracture
CPT/HCPCS: 77063; 77067; 77080

== ENCOUNTER → 2022-08-13 09:21 | Outpatient (BNVA) | payer MEDICARE, BC, SELFPAY | PROVIDERS: PCP Nurse Practitioner Family; Referring Provider Nurse Practitioner Family; Visit Provider Surgery | DX: D13.2 Benign neoplasm of duodenum (principal); R93.3 Abnormal findings on diagnostic imaging of other parts of digestive tract; K57.30 Diverticulosis of large intestine without perforation or abscess without bleeding; Z98.890 Other specified postprocedural states | CPT/HCPCS: 99213 ==

== ENCOUNTER 2022-09-04 06:12 | Day surgery (SDC) | payer MEDICARE, BC, SELFPAY ==
--- NOTE | 2022-09-03 19:39 | W.PM.DS.N ---
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 (2) Abnormal CT scan, gastrointestinal tract: Status: Acute Discharge Plan Disposition Patient Disposition: Home Discharge Details Attending Provider: Ammy Lama Primary Care Provider: Sallie Grubbs Home Meds and New Rx's Prescriptions: No Action aspirin 325 mg tablet 325 mg PO Q6H PRN multivitamin [Daily Multi-Vitamin] 1 EACH tablet 1 ea PO DAILY hydrocortisone 2.5 % cream 1 applic topical QID PRNQty: 30 12RF Discharge Orders Discharge Orders: Discharge Order (Routine); Ordered 09/04/22 Ordered By: Ammy Lama DS: Data Vitals/I&O Vitals and I&O: Intake & Output 09/02/22 09/03/22 09/03/22 23:59 11:59 23:59 Weight 57.606 kg PFSH All Active Problems (Updated 09/03/22 @ 19:40 by Ammy Lama DO) Right leg injury (Acute) Duodenal adenoma (Acute) Family history of breast cancer (Acute) mother History of basal cell carcinoma (BCC) of skin (Acute) 2016 or 18- removed Dr. Trujillo 2020- nose Dupuytren's contracture of right hand (Acute) Constipation (Acute) Diverticula of colon (Acute) Abnormal CT scan, gastrointestinal tract (Acute) Medical History (Updated 09/03/22 @ 19:40 by Ammy Lama DO) Diverticulitis of colon (without mention of hemorrhage) 3/10 DIVERTICULITIS W/ MICROPERFORATION OF RECTOSIGMOID; EXPL. LAP W/ IRRIGATION & DRAIN PLACED; POSTOP C. DIFFICILE; DR. JETT. History of basal cell carcinoma of skin Mass of uterine adnexa (~09/2021) 09/2021-benign Pelvic pain RLQ abdominal pain Unspecified hemorrhoids 3/10 DIVERTICULITIS W/ MICROPERFORATION OF RECTOSIGMOID; EXPL. LAP W/ IRRIGATION & DRAIN PLACED; POSTOP C. DIFFICILE; DR. JETT. Surgical History (Updated 11/12/21 @ 14:08 by Dot Phillip RN) Appendectomy (~08/2009) section Cholecystectomy (03/29/16) Hemorrhoidectomy History of esophagogastroduodenoscopy (EGD) (~10/24/21) Hx of arthroscopy of right knee flipped meniscus Hx of colonoscopy (~10/24/21) Hx of exploratory laparotomy Hx of hernia repair Ligation of fallopian tube Family History (Updated 09/03/20 @ 09:20 by Adelaida Bar) Mother Breast cancer Sister Heart disease Mother Hyperlipidemia Father Alcohol abuse Son No problems noted. Social History (Updated 09/10/21 @ 10:56 by Lu Bergman) Smoking/Tobacco Use Status: Never Second Hand Exposure: Yes Smoking risk assessment performed?: Yes Alcohol Intake: current Alcohol Intake frequency: 0-2 drinks per day Alcohol type: wine Drug use: Never Substance use type: does not use Household members: spouse Housing: house Communication Needs: None Do you need help understanding health information?: Rarely Pets and animals: Yes Pets and animals: dog(s) Sexually active: No Do you think of yourself as: straight/heterosexual Current gender identity: female What is your relationship status?: How often do you talk on the phone with friends or family?: three or more times per week How often do you get together with friends or relatives?: never Do you belong to any clubs or organized social groups?: yes Panel score (0-1 are the most socially isolated patients): 3 What type of physical activity do you participate in: walking, bicycling and weight lifting Duration: 30-45 minutes/day Frequency: daily Anna/Jainism: Jainism Special anna needs: No Seatbelt use: always Helmet use: Yes (WHEN BIKING) Helmet use: always Drive intox or ride w/intox marine engine driver: No Do you feel safe at home: Yes Do you feel safe in your relationship?: Yes History History 1 Para 1 Hx # Term Pregnancies Multiple births Hx # Pregnancies Ectopic pregnancies AB induced Hx Number of Living Children AB spontaneous
--- NOTE | 2022-09-03 19:40 | PDOC.DSDIS_ITS ---
Date of service: 09/04/22 Time of Service: 10:58 Discharge Plan Disposition Patient Disposition: Home Condition: Good Discharge Details Reason For Visit: EGD Attending Provider: Ammy Lama Primary Care Provider: Sallie Grubbs Home Meds and New Rx's Prescriptions: New famotidine [Pepcid] 20 mg tablet 20 mg PO BID 14 Days Qty: 28 2RF sucralfate [Carafate] 1 gram tablet 1 g PO QACHS Qty: 120 0RF Continued multivitamin [Daily Multi-Vitamin] 1 EACH tablet 1 ea PO DAILY hydrocortisone 2.5 % cream 1 applic topical QID PRNQty: 30 12RF Held aspirin 325 mg tablet 325 mg PO Q6H PRN Hold Instructions: Resume on 09/21/22. no ASA/NSIAD's for 14 days Discharge Instructions Additional Instructions: Post EGD Instruction ?You had anesthesia for your EGD/stomach scope today.? For your safety, please do the following for the next twenty-four (24) hours: Do Not operate a motor vehicle (car, truck, motorcycle, etc.) Do Not drink alcoholic beverages or use any recreational drugs for the first 24 hours or while taking pain medications. The medications in your body may have a reaction that can be dangerous. Do Not make any important decisions or sign any important papers You have just had a gastroscopy (EGD) or upper GI tract examination. It is important for your smooth recovery that you carefully follow the recommendations below. Do not hesitate to call if any questions should arise about your anesthesia, condition, or care. -Symptoms you may experience during the next 24 hours: ?1. Mild abdominal pain or excessive gas or a bloated feeling which improves with rest, liquids, eating? slightly, and walking as tolerated. 2. Drowsiness and/or forgetfulness because of the medications you were given. ?3. Throat numbness for about 1 hour. 4. A sore throat for about 24-48hrs. You can treat with throat lozenges or by gargling with salt water 4-5 times a day. 5. Redness at the site of your IV which you can treat with warm compresses. SPECIAL INSTRUCTIONS: 1. You may resume your previous diet in one hour. We recommend a light meal to start, then progress as tolerated. 2. Restart regular medications in one hour. 3. No aspirin or non-steroidal containing medication for three days. 4. No lifting over 20 pounds or strenuous activity for the first 24 hours after your procedure. After 24 hours there are no restrictions on your activity, but you may feel fatigued for a few days. Findings: polyp removed in duodenum and clip applied. -Continue to follow lifestyle modifications: No alcohol, tobacco products, Aspirin or NSAID's (ibuprofen, Motrin, Naprosyn, aleve, etc).? Try to limit/avoid:? soda pop/any carbonated beverages, caffeine (including tea & chocolate), and acidic foods, (tomatoes, citrus, onions, peppermints) spicy or fried/fatty foods. Do not lie down for 30 minutes after eating, and do not eat 2 hours prior to bedtime. Avoid wearing tight fitting clothing/ belts. -My office will send a letter with the results of your biopsy?s in 2-3wks time. Call the office at [phone] (Office) or [phone] (Hospital), or go to [facility] ER right away if you notice any of the followin. Vomiting blood and /or ?coffee ground? material. ?2. Worsening of abdominal pain or cramping. ?3. Trouble with breathing, cough, and/or fever (temperature above 101.5 F). 4. Increasing pain with swallowing. ?5. Chest pain. 6. Any new symptoms. 7. Worsening of the redness at the IV site -Continue with lifestyle modifications: no alcohol, tobacco products, Aspirin or NSAID's (ibuprofen, Motrin, Naprosyn, aleve, etc), soda pop/any carbonated beverages, caffeine (including tea & chocolate), and acidic foods, (tomatoes, citrus, onions, peppermints) spicy or fried for 14 days. -tylenol is OK -liquid diet for 24 hours. 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
[2022-09-04] VITALS (8 sets, daily range): BP systolic 85–146; BP diastolic 25–79; PULSE 67–89; RESP 18–25; TEMP 36.1–36.7; O2SAT 94–100; BMI 21.2
[2022-09-04] MEDS: Lactated Ringers 1,000 ML 80 ML IV (06:50)
--- NOTE | 2022-09-04 06:56 | W.ANESPRE ---
General Info Date of Service Date Performed: 09/04/22 Height: 5 ft 5 in Weight: 58 kg Body Mass Index (BMI): 21.2 Surgical Procedure: Operation Date: 09/04/22 07:35 Proposed Procedure Side Surgeon p Gastroscopy, Duodenal Polyp Removal Ammy Lama, DO Meds Allergies and Home Medications Allergies Allergy/AdvReac Type Severity Reaction Status Date / Time meperidine AdvReac Severe Nausea; Verified 09/04/22 06:23 VOMITING midazolam [From Versed] AdvReac Severe vomiting Verified 09/04/22 06:23 codeine AdvReac Unknown HALLUCINATI Verified 09/04/22 06:23 ONS Home Medication Medication Instructions Recorded multivitamin (Daily Multi-Vitamin 1 ea PO DAILY 07/17/16 tablet) hydrocortisone 2.5 % topical cream 1 applic topical QID PRN #30 grams 10/24/21 aspirin 325 mg tablet 325 mg PO Q6H PRN 08/13/22 Current Visit Medications: Current Medications Generic Name Dose Route Start Last Admin Trade Name Freq PRN Reason Stop Dose Admin Ringer's Solution 1,000 mls @ 80 mls/hr 09/04/22 06:00 09/04/22 06:56 IV 09/11/22 23:59 80 mls/hr INFUSION JACQUELINE Administration Ondansetron HCl 4 mg/ Sodium 52 mls @ 200 mls/hr 09/04/22 07:32 Chloride IVPB Q6H PRN PRN IV Miscellaneous Supplies 1 each 09/04/22 06:00 Iv Access IV 09/11/22 23:59 DIRECTED JACQUELINE Sodium Chloride 0 ml 09/04/22 06:00 Normal Saline Flush 10 Ml Syr IV 09/11/22 23:59 PRN PRN Sodium Chloride 0 ml 09/04/22 06:00 Normal Saline 10 Ml Vial IJ 09/11/22 23:59 DIRECTED PRN Sterile Water 0 ml 09/04/22 06:00 Water,Injection,Sterile 10 Ml Vial IJ 09/11/22 23:59 DIRECTED PRN PFSH Active Problems Active Problems: Problem Status Onset Code Right leg injury S89.91XA Duodenal adenoma D13.2 Family history of breast cancer Z80.3 History of basal cell carcinoma (BCC) of skin Z85.828 Dupuytren's contracture of right hand M72.0 Constipation K59.00 Diverticula of colon K57.[address] scan, gastrointestinal tract R93.3 Medical History Medical History Diverticulitis of colon (without mention of hemorrhage) 08/21 DIVERTICULITIS W/ MICROPERFORATION OF RECTOSIGMOID; EXPL. LAP W/ IRRIGATION & DRAIN PLACED; POSTOP C. DIFFICILE; DR. JETT. History of basal cell carcinoma of skin Mass of uterine adnexa (~09/2021) 09/2021-benign Pelvic pain RLQ abdominal pain Unspecified hemorrhoids 08/21 DIVERTICULITIS W/ MICROPERFORATION OF RECTOSIGMOID; EXPL. LAP W/ IRRIGATION & DRAIN PLACED; POSTOP C. DIFFICILE; DR. JETT. Surgical History Surgical History Appendectomy (~08/2009) section Cholecystectomy (03/29/16) Hemorrhoidectomy History of esophagogastroduodenoscopy (EGD) (~10/24/21) Hx of arthroscopy of right knee flipped meniscus Hx of colonoscopy (~10/24/21) Hx of exploratory laparotomy Hx of hernia repair Ligation of fallopian tube Tobacco Smoking/Tobacco Use Status: Never Passive smoking exposure: Yes Second hand exposure: Yes Alcohol Alcohol Intake: current Alcohol intake frequency: 0-2 drinks per day Alcohol type: wine Substance Use Substance use: Never Substance use type: does not use Prental History History 1 Para 1 Hx # Term Pregnancies Multiple births Hx # Pregnancies Ectopic pregnancies AB induced Hx Number of Living Children AB spontaneous Vital Signs and Lab Results Vital Signs Most Recent Vital Signs in EMR: Most Recent Vital Signs Temp Pulse Resp BP Pulse Ox 36.1 C L 79 18 131/74 100 09/04/22 06:26 09/04/22 06:26 09/04/22 06:26 09/04/22 06:26 09/04/22 06:26 Lab Results Blood Type / Crossmatch: No Data to Display Complete Blood Count: No Data to Display Complete Metabolic Panel: No Data to Display Liver Function Panel: No Data to Display Coagulation Panel: No Data to Display Cardiac Panel: No Data to Display Arterial Blood Gas: No Data to Display Venous Blood Gas: No Data to Display Pancreas Panel: No Data to Display Thyroid Panel: No Data to Display Infectious Disease: No Data to Display Blood Cultures: No Data to Display Toxicology Panel: No Data to Display Anesthesia Assessment and Plan Anesthesia History Personal History: PONV Family History: No Family History of Anesthesia Complications Exercise Tolerance Exercise Tolerance: Metabolic Equivalents>4 Pertinent Negatives Pertinent Negatives: No Symptoms of GERD, No Major Cardiovascular Symptoms or Complaints, No Major Pulmonary Symptoms or Complaints and No History of CVA/TIA Cardiac & Pulmonary Exam Cardiac Exam: Normal S1/S2 Heart Sounds Pulmonary Exam: Clear Bilateral Breath Sounds Implantable Cardiac Device Does patient have a Pacemaker or an ICD?: No Airway Exam Known Difficult Airway: No Mallampati Class: 4 Mouth Opening: Normal (> 3cm) Thyromental Distance: Greater than 3 cm Neck Range of Motion: Full ROM Neck Circumference: Normal Teeth Condition: Normal Dentition ASA Classification ASA Score: ASA 2 Emergency Case?: No NPO Status NPO Status: NPO Clears >2 hours, Solids >8 hours Anesthesia Plan Resuscitation Status: Full Code Anesthesia Technique: General Anesthesia Airway Planned: Endotracheal Tube Monitors Used: Standard Monitors
--- NOTE | 2022-09-04 10:15 | ESO_PTH ---
PATIENT: Suyapa Oropeza LOC: [facility] U#:[id number] AGE/SX: 76/F ROOM: RE09/04/[address]: Ammy Lama : 1945 BED: DIS: 09/04/2022 SPEC #: [id number] RECD: 09/04/22 12:16 STATUS: YURIY REJadon #: [id number] MARCELLA: 09/04/22 10:[address]: Ammy Lama DEPT: Surgical Specimen RECD BY: July Lopez ENTERED: 09/04/22 12:17 SP TYPE: Mayra WERNER DR: Sallie Grubbs, DATER ASSEMBLER Tissues: 1 - BIOPSY BOWEL 2 - ESOPHAGUS BIOPSY 3 - STOMACH BIOPSY Procedures: GROSS AND MICRO LEVEL 4 Comments: [id number]
--- NOTE | 2022-09-04 11:17 | W.ANESPOSTOP ---
Postoperative Evaluation Date, Time and Location Date Performed: 09/04/22 Time Performed: 11:17 Patient Location: PACU Vital Signs Most Recent Imported Vital Signs: Most Recent Vital Signs Temp Pulse Resp BP Pulse Ox 36.7 C 87 21 103/79 95 09/04/22 10:57 09/04/22 10:57 09/04/22 10:57 09/04/22 10:57 09/04/22 10:57 Pain Score Most Recent Pain Score: Most Recent Pain Score Pain Level 0 09/04/22 06:26 Assessment Mental Status: Arousable with meaningful communication Airway and Respiratory Function: Patent airway with normal (patient baseline) respiratory exam Cardiovascular Function: Hemodynamically Stable Hydration Status: Adequately Hydrated Nausea & Vomiting: No Nausea or Vomiting Pain: Pain is tolerable per patient Peripheral Nerve Block: Patient did not receive a nerve block
--- NOTE | 2022-09-04 11:52 | PDOC.DSDIS_ITS ---
Date of service: 09/04/22 Time of Service: 12:04 Discharge Plan Disposition Patient Disposition: Home Condition: Good Discharge Details Reason For Visit: EGD Attending Provider: Ammy Lama Primary Care Provider: Sallie Grubbs Home Meds and New Rx's Prescriptions: New famotidine [Pepcid] 20 mg tablet 20 mg PO BID 14 Days Qty: 28 2RF sucralfate [Carafate] 1 gram tablet 1 g PO QACHS Qty: 120 0RF Continued multivitamin [Daily Multi-Vitamin] 1 EACH tablet 1 ea PO DAILY hydrocortisone 2.5 % cream 1 applic topical QID PRNQty: 30 12RF Held aspirin 325 mg tablet 325 mg PO Q6H PRN Hold Instructions: Resume on 09/21/22. no ASA/NSIAD's for 14 days Discharge Instructions Instructions: Diet for Stomach Ulcers and Gastritis (GEN) Additional Instructions: Post EGD Instruction ?You had anesthesia for your EGD/stomach scope today.? For your safety, please do the following for the next twenty-four (24) hours: Do Not operate a motor vehicle (car, truck, motorcycle, etc.) Do Not drink alcoholic beverages or use any recreational drugs for the first 24 hours or while taking pain medications. The medications in your body may have a reaction that can be dangerous. Do Not make any important decisions or sign any important papers You have just had a gastroscopy (EGD) or upper GI tract examination. It is important for your smooth recovery that you carefully follow the recommendations below. Do not hesitate to call if any questions should arise about your anes thesia, condition, or care. -Symptoms you may experience during the next 24 hours: ?1. Mild abdominal pain or excessive gas or a bloated feeling which improves with rest, liquids, eating? slightly, and walking as tolerated. 2. Drowsiness and/or forgetfulness because of the medications you were given. ?3. Throat numbness for about 1 hour. 4. A sore throat for about 24-48hrs. You can treat with throat lozenges or by gargling with salt water 4-5 times a day. 5. Redness at the site of your IV which you can treat with warm compresses. SPECIAL INSTRUCTIONS: 4. No lifting over 20 pounds or strenuous activity for the first 24 hours after your procedure. After 24 hours there are no restrictions on your activity, but you may feel fatigued for a few days. Findings: polyp removed in duodenum and clip applied. -Continue to follow lifestyle modifications: No alcohol, tobacco products, Aspirin or NSAID's (ibuprofen, Motrin, Naprosyn, aleve, etc).? Try to limit/avoid:? soda pop/any carbonated beverages, caffeine (including tea & chocolate), and acidic foods, (tomatoes, citrus, onions, peppermints) spicy or fried/fatty foods. Do not lie down for 30 minutes after eating, and do not eat 2 hours prior to bedtime. Avoid wearing tight fitting clothing/ belts. -My office will send a letter with the results of your biopsy?s in 2-3wks time. Call the office at [phone] (Office) or [phone] (Hospital), or go to the ER right away if you notice any of the followin. Vomiting blood and /or ?coffee ground? material. ?2. Worsening of abdominal pain or cramping. ?3. Trouble with breathing, cough, and/or fever (temperature above 101.5 F). 4. Increasing pain with swallowing. ?5. Chest pain. 6. Any new symptoms. 7. Worsening of the redness at the IV site -Continue with lifestyle modifications: no alcohol, tobacco products, Aspirin or NSAID's (ibuprofen, Motrin, Naprosyn, aleve, etc), soda pop/any carbonated beverages, caffeine (including tea & chocolate), and acidic foods, (tomatoes, citrus, onions, peppermints) spicy or fried for 14 days. -tylenol is OK -Full liquid diet for 24 hours. Soft diet for the next 48hrs -pepcid and carafate for 14 days FULL LIQUID DIET Milk and milk products:??Milk (all types including buttermilk, soy, rice, almond,? and cow?s), milkshakes, pasteurized eggnog, smooth ice cream, frozen yogurt, custard, yogurt without fruit and pudding.? Vegetables:??All vegetable juices except tomatoe. Fruits:??All juice and nectar. (no citrus) Breads & Grains:??Cooked, refined cereals including cream of wheat, grits, cream of rice and thinned oatmeal. Meat & Meat Substitutes:??None. Fats & Oils:?? Butter, margarine, cream and oils. Sweets and Desserts:??Sherbet, sugar, sugar substitutes, hard candy, popsicles, gelatin and fruit pieces, honey and syrups. Beverages:??All Soups:??Broth, bouillon, smooth tomato soup and strained cream soups. Bone Broth. Gastrointestinal Soft Diet Overview Overview What is a gastrointestinal soft diet? This diet is soft in texture, low in fiber, and easy to digest. The goal is to decrease) ?in the bowel that may cause and discomfort. This diet is often used after abdominal surgery or as a transitional diet after flares. No caffeine/tobacco/alcohol. No tomatoes or citrus. Nothing in the mint family. Low acid food. Meats & Meat Substitutes ?? Foods Allowed: Chicken, turkey, fish, tender cuts of beef and pork, ground meats, eggs, creamy nut butters, tofu, skinless hot dogs, sausage patties without whole spices ?? Foods to Avoid : Tough, fibrous meats with gristle, meat with casings (hot dogs, sausage, kielbasa), lunch meats with whole spices, shellfish, beans, chunky peanut butter, nuts Fruits and Juices ?? Foods Allowed: Fruit juices without pulp, banana, avocado, applesauce, canned peaches and pears, cooked fruit without the skin/seeds.? Ground or over- cooked fruits.? Fruits ground finely in a ?smoothie?. ?? Foods to Avoid: Juices with pulp, fresh fruit (except banana and avocado), dried fruits, canned fruit cocktail and pineapple, coconut, frozen/thawed berries Vegetables ?? Foods Allowed: Well-cooked or canned vegetables, potatoes without skin, tomato sauces, vegetable juice ?? Foods to Avoid: Raw vegetables, all corn, all mushrooms, stewed tomatoes, potato skins, stir-gates vegetables, sauerkraut, pickles, olives, all dried beans, peas, and legumes Cereals and Grains ?? Foods Allowed: Low- fiber dry or cooked cereals (less than 2 grams fiber per serving), white rice, pasta, macaroni, or noodles ?? Foods to Avoid: Cereals with nuts, berries, dried fruits, whole grain cereals, bran cereals, granola, brown or wild rice, whole grain pasta Breads and Crackers ?? Foods Allowed: White/refined breads and rolls, plain bagel, toast, plain crackers, shoshana crackers ?? Foods to Avoid: Whole grain breads- including white whole grain; bread/ rolls with raisins, nuts or seeds, multi-grain crackers Dairy ?? Foods Allowed: Milk, cheese, yogurt, milkshakes, pudding, ice cream, cottage cheese, sherbet ;?lactose free or low lactose versions if lactose intolerant ?? Foods to Avoid: Dairy product mixed with fresh fruit (except banana), berries, nuts or seeds Desserts ?? Foods Allowed: Plain cake, pudding, custard, ice cream, sherbet, gelatin, fruit whips ?? Foods to Avoid: Any dessert that contains nuts, dried fruits, coconut, or fruits with seeds Herbs and Spices ?? Foods Allowed: All ground spices or herbs, salt ?? Foods to Avoid: Whole spices such as peppercorns, whole cloves, anise seeds, celery seeds, darron, mukesh seeds, and fresh herbs Snacks/Other Foods ?? Foods Allowed: Sugar, honey, jelly, mayonnaise, mustard, soy sauce, oil, butter, margarine, marshmallows, cookies without dried fruits or nuts, snack chips and pretzels using refined flours ?? Foods to Avoid: Carbonated beverages, jams or jellies with seeds, popcorn Some people may continue to have food sensitivities and may need to continue to avoid certain foods. If you cannot tolerate a food, avoid that food for a few weeks before you try it again. Guidelines when eating 1.? Avoid any food that you cannot tolerate or that causes gas, bloating, or stomach pain. 2.? Make time for your meals. Do not eat while you are in a hurry. Cut your food into small pieces. Chew each bite to a mashed potato consistency. Do not eat when you cannot concentrate on chewing well. 3.? Drink at least 6-8 cups of fluid per day? Fluids include: water, coffee, tea, juice, milk, popsicles, soups, gelatin, pudding, ice cream, sherbet, and yogurt. In addition, choose caffeine-free beverages more often, especially if you are having?diarrhea. 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
[2022-09-04] MEDS: Normal Saline Flush 10 ML SYR IV (11:59)
[2022-09-04] MEDS: Famotidine 20 MG/2 ML VIAL IVP (11:59)
--- NOTE | 2022-09-04 23:00 | W.PM.OP ---
Date of service: 09/04/22 Time of Service: 11:00 Operative Note Operative Note DATE OF PROCEDURE: 09/04/22 PRE-OP DIAGNOSIS: adenomas polyp D2 POST-OP DIAGNOSIS: same (also hiatal hernia and esophagitis) PROCEDURE: egd polypectomy and biopsy SURGEON: Ammy Lama ANESTHESIA TYPE: General LMA/ETT Refer to Anesthesia Record ESTIMATED BLOOD LOSS: 1 PATHOLOGY: other COMPLICATIONS: None Patient was transported to: same day Patient's condition: stable Procedure Description: After informed consent was obtained the patient was take to the procedure room and placed in a supine position. Monitors were applied and a time out was done. The patients name, date of , procedure type, allergies to medications and metal in their body was reviewed. Anesthesia was administered per the department of anesthesia. the gastroscope was advanced through the oropharynx which was grossly normal into the esophagus. The proximal and mid-esophagus were normal. distal esophagus: There is a 2 cm sliding hiatal hernia and some mild esophagitis. There is no diverticula or stricture apparent. Biopsies were taken at the GE junction. The scope was advanced into the stomach and through the pylorus into the 3rd portion of the duodenum. There is no duodenitis or ulcers noted. She has an known adenomatous polyp in D2. This polyp was visualized. It was excised using a hot snare. It was retrieved. It is pedunculated and approximately 1 cm in size. A Clip was placed across the defect. No bleeding was noted. The scope was retracted back into the stomach. There is no gastritis or ulcers noted. There is a small polyp on the lesser curvature. This was excised using a cold biting forcep. All specimen is retrieved and no bleeding is noted. The scope was retroflexed. The cardia and fundus were noted to be normal. The hiatus is also patulous-mild. There is no bleeding from the polypectomy site. the scope was removed and the patient was woken up and taken back to [facility] in stable condition. Follow up: 2 weeks for biopsy results.
== END 2022-09-04 12:47 | disposition home or self-care (01) ==
PROVIDERS: PCP Nurse Practitioner Family; Visit Provider Surgery
PROC: 0DJ68ZZ Inspection of Stomach, Via Natural or Artificial Opening Endoscopic (ICD-10-PCS; CPT 43235; principal; 2022-09-04 07:30)
DX: D13.2 Benign neoplasm of duodenum (principal); K44.9 Diaphragmatic hernia without obstruction or gangrene; K20.90 Esophagitis, unspecified without bleeding; K31.7 Polyp of stomach and duodenum; K22.89 Other specified disease of esophagus; K31.89 Other diseases of stomach and duodenum
CPT/HCPCS: 43251; 43239; 88305; J2704

== ENCOUNTER 2022-09-08 01:32 | Outpatient (CLI) | payer MEDICARE, BC, SELFPAY ==
--- NOTE | 2022-09-08 06:45 | DI.RAD_ITS ---
Exam(s) XR TIB/FIB RT EXAM: XR TIB/FIB RT CLINICAL HISTORY: continued pain,RT LEG INJURY,S89.91XA. TECHNIQUE: 2D digital imaging was performed of the right tibia and fibula. Three images were obtaine d. AP and lateral views were obtained. COMPARISON: No exams were available for comparison FINDINGS: BONES: No acute fracture is present. No bony destructive lesion is seen. Visualized portion of knee a nd ankle joints are unremarkable. SOFT TISSUE: Normal. IMPRESSION: No acute abnormality. DATA REPOSITORY: RADIATION DOSE DELIVERED:
== END 2022-09-08 01:52 ==
LOC: DI 01:33
PROVIDERS: PCP Nurse Practitioner Family; Visit Provider Nurse Practitioner Family
DX: M79.661 Pain in right lower leg; S89.81XA Other specified injuries of right lower leg, initial encounter
CPT/HCPCS: 73590

== ENCOUNTER → 2022-09-17 09:20 | Outpatient (BNVA) | payer MEDICARE, BC, SELFPAY | PROVIDERS: PCP Nurse Practitioner Family; Referring Provider Nurse Practitioner Family; Visit Provider Surgery | DX: D13.2 Benign neoplasm of duodenum (principal) | CPT/HCPCS: 99212; 99213 ==

== ENCOUNTER 2022-11-23 02:36 | Outpatient (CLI) | payer MEDICARE, BC, SELFPAY ==
--- NOTE | 2022-11-23 08:00 | DI.MAMMO_ITS ---
Exam(s) MAMMO SCREENING EXAM: MAMMO SCREENING CLINICAL HISTORY: screening,Z12.39. TECHNIQUE: Bilateral full field digital CC and MLO mammographic images were obtained with 3D tomosyn thesis and utilizing computer aided detection (CAD). COMPARISON: Prior mammograms were reviewed. FINDINGS: There has been no significant change in the appearance and distribution of the fibroglandular tissue. No CAD designations. There are no new spiculated masses nor malignant appearing microcalcification groups. Benign macrocalcification in the left breast is again noted. There is no significant architectural distortion nor skin thickening-retraction. Inferolateral skin mole on the left breast is again noted IMPRESSION: No radiographic evidence of malignancy. Left breast skin mole again noted. BI-RADS Category 2 - Benign Findings Breast Density - Category B - Scattered areas of fibroglandular density Breast density Category C or D implies that the patient has dense breast tissue. Dense breast tissue can make it harder to find cancer on a mammogram. Dense breast tissue is also associated with an incr eased risk of breast cancer. This information about the result of the mammogram report was provided to the patient to raise their awareness. Use this report when you speak with the patient about their risks for breast cancer, which includes their family history. At that time, you may recommend additional screening tests (Ultrasoun d or MRI) as these tests may add significant information. A negative radiographic report should not delay biopsy if a dominant or clinically suspicious mass is present. Up to ten percent of cancers are not identified on mammography. A negative report may reinforce clinical impression. Adenosis and dense breasts may obscure an underlying neoplasm. False positive reports average 6 to 10%. Patient will receive a letter notifying them of these results.
== END 2022-11-23 02:56 ==
LOC: DI 02:36
PROVIDERS: PCP Nurse Practitioner Family; Visit Provider Nurse Practitioner Family
DX: Z12.31 Encounter for screening mammogram for malignant neoplasm of breast (principal)
CPT/HCPCS: 77063; 77067

== ENCOUNTER 2022-12-08 01:28 | Outpatient (CLI) | payer MEDICARE, BC, SELFPAY ==
--- NOTE | 2022-12-08 09:50 | DI.RAD_ITS ---
Exam(s) XR HIP PELVIS ADULT BL EXAM: XR HIP PELVIS ADULT BL CLINICAL HISTORY: cont BL hip pain,M25.551,M25.552. TECHNIQUE: 2D digital imaging was performed. Three views. COMPARISON: CR XR DEXA BONE DENSITY W/WO CHRISTIE from 11/20/2021 FINDINGS: BONES: No acute fracture is present. No bony destructive lesion is seen. JOINTS: No dislocation present. The joint spaces are maintained. There is mild acetabular spurring . The SI joints show mild degenerative changes. SOFT TISSUE: Normal. IMPRESSION: Mild degenerative changes. DATA REPOSITORY: RADIATION DOSE DELIVERED:
== END 2022-12-08 01:48 ==
LOC: DI 01:28
PROVIDERS: PCP Nurse Practitioner Family; Visit Provider Nurse Practitioner Family
DX: M16.0 Bilateral primary osteoarthritis of hip
CPT/HCPCS: 73521

== ENCOUNTER → 2023-02-11 10:09 | Outpatient (BNVA) | payer MEDICARE, BC, SELFPAY | PROVIDERS: PCP Nurse Practitioner Family; Referring Provider Nurse Practitioner Family; Visit Provider Student in an Organized Health Care Education/Training Program | DX: M25.851 Other specified joint disorders, right hip (principal); S76.911A Strain of unspecified muscles, fascia and tendons at thigh level, right thigh, initial encounter; X58.XXXA Exposure to other specified factors, initial encounter | CPT/HCPCS: 99213 ==

== ENCOUNTER → 2023-02-25 13:41 | Outpatient (BNVA) | payer MEDICARE, BC, SELFPAY | PROVIDERS: PCP Nurse Practitioner Family; Referring Provider Nurse Practitioner Family; Visit Provider Student in an Organized Health Care Education/Training Program | DX: M25.851 Other specified joint disorders, right hip (principal) | CPT/HCPCS: 20611; J1040 ==

== ENCOUNTER 2023-04-23 12:11 | Outpatient (REF) | payer MEDICARE, BC, SELFPAY ==
--- NOTE | 2023-04-23 11:40 | SKI_PTH ---
PATIENT: Suyapa Oropeza LOC: [facility] U#:[id number] AGE/SX: 77/F ROOM: RE04/23/[address]: JOHANA Snow : 1945 BED: DIS: 04/23/2023 SPEC #: [id number] RECD: 04/23/23 13:45 STATUS: YURIY REQ #: [id number] MARCELLA: 04/23/23 11:[address]: Harris Aldrich DEPT: Surgical Specimen RECD BY: July Lopez ENTERED: 04/23/23 13:45 SP TYPE: ESPINOZA WERNER DR: Sallie Grubbs, JUNI Tissues: 1 - SKIN BIOPSY(SHAVE/PUNCH) Procedures: SKIN LEVEL 4 Comments: [id number]
== END 2023-04-23 12:12 | disposition home or self-care (01) ==
LOC: LBN 12:11
PROVIDERS: PCP Nurse Practitioner Family; Visit Provider Physician Assistant
DX: D49.2 Neoplasm of unspecified behavior of bone, soft tissue, and skin (principal); D22.39 Melanocytic nevi of other parts of face
CPT/HCPCS: 88305

== ENCOUNTER → 2023-05-27 13:56 | Outpatient (BNVA) | payer MEDICARE, BC, SELFPAY | PROVIDERS: PCP Nurse Practitioner Family; Referring Provider Nurse Practitioner Family | DX: M25.851 Other specified joint disorders, right hip (principal) | CPT/HCPCS: 20611; J1040 ==

== ENCOUNTER 2023-07-30 02:10 | Outpatient (CLI) | payer MEDICARE, BC, SELFPAY ==
[2023-07-30 07:25] LABS: Abs Immature Grans 0.01 10^3/uL (0.0-0.06); Absolute Basophil Count 0.17 10^3/uL (0.0-0.2); Absolute Lymphocyte Count 1.14 10^3/uL (1.2-3.4); Absolute Monocyte Count 0.54 10^3/uL (0.1-0.8); Absolute Neutrophil Count 4.05 10^3/uL (1.2-6.7); Basophils % 2.7; Eosinophils % 4.8; HCT 45.9 % (36.0-46.0); HGB 15.3 g/dL (11.2-15.7); Immature Grans % 0.2; Lymphocytes % 18.4; MCH 31.7 pg (27.0-33.0); MCHC 33.3 % (32.0-36.0); MCV 95 fL (80-95); MPV 9.6 fL (8.0-11.0); Monocytes % 8.7; Neutrophils % 65.2; Platelet Count 259 10^3/uL (130-400); RBC 4.82 10^6/uL (3.93-5.22); RDW 12.9 % (11.7-14.6); RDW-SD 45.5 fL; WBC 6.21 10^3/uL (4.4-10.8)
[2023-07-30 07:52] LABS: ALT 25 U/L (14-59); AST 15 U/L (15-37); Albumin 3.6 g/dL (3.4-5.0); Alkaline Phosphatase 92 U/L (46-116); Anion Gap 9.8 mmol/L (3-11); BUN 18 mg/dL (7-18); Bilirubin, Total 0.5 mg/dL (0.2-1.0); CO2 30.2 mmol/L (21.0-32.0); CREATININE 0.7 mg/dL (0.55-1.02); Calcium 8.9 mg/dL (8.5-10.1); Calculated LDL 146 mg/dL (<100); Chloride 104 mmol/L (98-107); Cholesterol 267 mg/dL (<200); Estimated GFR 90.14 (mL/min/1.73m2); Glucose 130 mg/dL (74-106); HDL Cholesterol 106 mg/dL (40-60); Potassium 3.9 mmol/L (3.5-5.1); Sodium 144 mmol/L (136-145); Total Protein 7.7 g/dL (6.4-8.2); Triglyceride 78 mg/dL (<150)
== END 2023-07-30 02:11 | disposition home or self-care (01) ==
PROVIDERS: PCP Nurse Practitioner Family; Visit Provider Nurse Practitioner Family
DX: Z85.828 Personal history of other malignant neoplasm of skin (principal); Z00.00 Encounter for general adult medical examination without abnormal findings; R93.3 Abnormal findings on diagnostic imaging of other parts of digestive tract
CPT/HCPCS: 36415; 80053; 80061; 85025

== ENCOUNTER 2023-08-16 15:23 | Outpatient (CLI) | payer MEDICARE, BC, SELFPAY ==
--- NOTE | 2023-08-16 10:15 | DI.RAD_ITS ---
Exam(s) XR PELVIS AP EXAM: XR PELVIS AP CLINICAL HISTORY: THR Planning. TECHNIQUE: 2D digital imaging was performed. Single AP view. COMPARISON: CR XR HIP PELVIS ADULT BL from 12/08/2022 FINDINGS: BONES: No acute fracture is present. No bony destructive lesion is seen. Sacrum is obscured by overly ing bowel gas. JOINTS: No dislocation present. No joint space narrowing is present. Mild periarticular spurring. Mild spurring at the SI joints. SOFT TISSUE: Normal. IMPRESSION: No acute abnormality. Degenerative changes of both hips. DATA REPOSITORY: RADIATION DOSE DELIVERED:
== END 2023-08-16 15:24 | disposition home or self-care (01) ==
LOC: DIORS 15:23
PROVIDERS: PCP Nurse Practitioner Family; Referring Provider Nurse Practitioner Family; Visit Provider Physician Assistant
DX: M25.851 Other specified joint disorders, right hip (principal); Z01.818 Encounter for other preprocedural examination
CPT/HCPCS: 72170

== ENCOUNTER 2023-08-31 05:58 | Day surgery (SDC) | payer MEDICARE, BC, SELFPAY ==
[2023-08-31] VITALS (10 sets, daily range): BP systolic 91–140; BP diastolic 46–87; PULSE 60–83; RESP 12–25; TEMP 36.2–36.7; O2SAT 98–100; BMI 20.5
[2023-08-31] MEDS: Acetaminophen 500 MG TAB 1000 MG PO (06:39)
[2023-08-31] MEDS: Celecoxib 200 MG CAP 400 MG PO (06:39)
[2023-08-31] MEDS: Lactated Ringers 1,000 ML 80 ML IV (06:47)
--- NOTE | 2023-08-31 06:57 | ANES.PREOP_ITS ---
General Info Date of Service Date Performed: 08/31/23 Height: 5 ft 5 in Weight: 56.1 kg Body Mass Index (BMI): 20.5 Surgical Procedure: Operation Date: 08/31/23 07:50 Proposed Procedure Side Surgeon p Hip Total Hip Anterior, Corail 125 Std Right Aris Bhatt MD Meds Allergies and Home Medications Allergies Allergy/AdvReac Type Severity Reaction Status Date / Time meperidine AdvReac Severe Nausea; Verified 08/31/23 06:17 VOMITING midazolam [From Versed] AdvReac Severe vomiting Verified 08/31/23 06:17 oxycodone AdvReac Mild Other (See Verified 08/31/23 06:17 Comment) codeine AdvReac Unknown HALLUCINATI Verified 08/31/23 06:17 ONS Home Medication Medication Instructions Recorded multivitamin (Daily Multi-Vitamin 1 ea PO DAILY 07/17/16 tablet) hydrocortisone 2.5 % topical cream 1 applic topical QID PRN itching 09/17/22 #30 grams acetaminophen 500 mg tablet 1,000 mg (2 x 500 mg) PO TID #90 08/31/23 tabs aspirin 81 mg tablet,delayed 81 mg PO BID #60 tabs 08/31/23 release celecoxib 200 mg capsule 200 mg PO BID #60 caps 08/31/23 dexamethasone 4 mg tablet 4 mg PO DAILY #2 tabs 08/31/23 pantoprazole 40 mg tablet,delayed 40 mg PO DAILY #30 tabs 08/31/23 release tramadol 50 mg tablet 50 mg PO Q4H PRN #20 tabs 08/31/23 Current Visit Medications: Current Medications Generic Name Dose Route Start Last Admin Trade Name Tonyq PRN Reason Stop Dose Admin Acetaminophen 1,000 mg 08/31/23 06:00 08/31/23 06:39 Acetaminophen 500 Mg Tab PO 09/30/23 05:59 1,000 mg PREOP JACQUELINE Administration Celecoxib 400 mg 08/31/23 06:00 08/31/23 06:39 Celecoxib 200 Mg Cap PO 09/30/23 05:59 400 mg PREOP JACQUELINE Administration Tranexamic Acid/Sodium Chloride 100 mls @ 600 mls/hr 08/31/23 06:00 IVPB 09/30/23 05:59 PREOP JACQUELINE Ringer's Solution 1,000 mls @ 80 mls/hr 08/31/23 06:00 08/31/23 06:47 IV 08/31/23 23:59 80 mls/hr INFUSION JACQUELINE Administration Cefazolin Sodium/Dextrose 2 gm in 50 mls @ 100 mls/hr 08/31/23 06:00 Ancef Duplex IVPB 08/31/23 23:59 PREOP JACQUELINE IV Miscellaneous Supplies 1 each 08/31/23 06:00 Iv Access IV 08/31/23 23:59 DIRECTED JACQUELINE Sodium Chloride 0 ml 08/31/23 06:00 Normal Saline Flush 10 Ml Syr IV 08/31/23 23:59 PRN PRN Sodium Chloride 0 ml 08/31/23 06:00 Normal Saline 10 Ml Vial IJ 08/31/23 23:59 DIRECTED PRN Sterile Water 0 ml 08/31/23 06:00 Water,Injection,Sterile 10 Ml Vial IJ 08/31/23 23:59 DIRECTED PRN PFSH Active Problems Active Problems: Problem Status Onset Code Wart B07.9 Abnormal skin growth D49.2 Actinic keratosis L57.0 Strain of right iliopsoas muscle S76.911A Right hip impingement syndrome M25.851 Bilateral hip pain M25.551, M25.552 Right leg injury S89.91XA Duodenal adenoma D13.2 Family history of breast cancer Z80.3 History of basal cell carcinoma (BCC) of skin Z85.828 Dupuytren's contracture of right hand M72.0 Constipation K59.00 Diverticula of colon K57.[address] scan, gastrointestinal tract R93.3 Medical History Medical History Diverticulitis of colon (without mention of hemorrhage) 08/21 DIVERTICULITIS W/ MICROPERFORATION OF RECTOSIGMOID; EXPL. LAP W/ IRRIGATION & DRAIN PLACED; POSTOP C. DIFFICILE; DR. JETT. History of basal cell carcinoma of skin Mass of uterine adnexa (~09/2021) 09/2021-benign Pelvic pain RLQ abdominal pain Unspecified hemorrhoids 08/21 DIVERTICULITIS W/ MICROPERFORATION OF RECTOSIGMOID; EXPL. LAP W/ IRRIGATION & DRAIN PLACED; POSTOP C. DIFFICILE; DR. JETT. Surgical History Surgical History Appendectomy (~08/2009) section Cholecystectomy (03/29/16) Hemorrhoidectomy History of esophagogastroduodenoscopy (EGD) (~10/24/21) Hx of arthroscopy of right knee flipped meniscus Hx of colonoscopy (~10/24/21) Hx of exploratory laparotomy Hx of hernia repair Ligation of fallopian tube Tobacco Smoking/Tobacco Use Status: Never Passive smoking exposure: Yes Second hand exposure: Yes Alcohol Alcohol Intake: current Alcohol intake frequency: a few times a week Alcohol type: wine Substance Use Substance use: Never Substance use type: does not use Prental History History 1 Para 1 Hx # Term Pregnancies Multiple births Hx # Pregnancies Ectopic pregnancies AB induced Hx Number of Living Children AB spontaneous Vital Signs and Lab Results Vital Signs Most Recent Vital Signs in EMR: Most Recent Vital Signs Temp Pulse Resp BP Pulse Ox 36.7 C 83 16 140/62 100 08/31/23 06:20 08/31/23 06:20 08/31/23 06:20 08/31/23 06:20 08/31/23 06:20 Lab Results Blood Type / Crossmatch: No Data to Display Complete Blood Count: 2 No Data to Display Complete Metabolic Panel: No Data to Display Liver Function Panel: No Data to Display Coagulation Panel: No Data to Display Cardiac Panel: No Data to Display Arterial Blood Gas: No Data to Display Venous Blood Gas: No Data to Display Pancreas Panel: No Data to Display Thyroid Panel: No Data to Display Infectious Disease: No Data to Display Blood Cultures: No Data to Display Toxicology Panel: No Data to Display Anesthesia Assessment and Plan Anesthesia History Personal History: PONV Family History: No Family History of Anesthesia Complications Exercise Tolerance Exercise Tolerance: Metabolic Equivalents>4 Pertinent Negatives Pertinent Negatives: No Symptoms of GERD, No Major Cardiovascular Symptoms or Complaints, No Major Pulmonary Symptoms or Complaints and No History of CVA/TIA Cardiac & Pulmonary Exam Cardiac Exam: Normal S1/S2 Heart Sounds Pulmonary Exam: Clear Bilateral Breath Sounds Implantable Cardiac Device Does patient have a Pacemaker or an ICD?: No Airway Exam Known Difficult Airway: No Mallampati Class: 4 Mouth Opening: Normal (> 3cm) Thyromental Distance: Greater than 3 cm Neck Range of Motion: Full ROM Neck Circumference: Normal Teeth Condition: Normal Dentition ASA Classification ASA Score: ASA 2 Emergency Case?: No NPO Status NPO Status: NPO Clears >2 hours, Solids >8 hours Anesthesia Plan Resuscitation Status: Full Code Anesthesia Technique: Spinal Anesthesia Airway Planned: Natural Airway Monitors Used: Standard Monitors
--- NOTE | 2023-08-31 07:11 | W.PM.DSUDISC ---
Date of service: 08/31/23 Time of Service: 07:12 Discharge Plan Disposition Patient Disposition: Home Condition: Good Discharge Details Reason For Visit: R THR Attending Provider: Aris Bhatt Primary Care Provider: Sallie Grubbs Home Meds and New Rx's Prescriptions: New celecoxib 200 mg capsule 200 mg PO BID Qty: 60 0RF aspirin 81 mg tablet,delayed release (DR/EC) 81 mg PO BID Qty: 60 0RF tramadol 50 mg tablet 50 mg PO Q4H PRNQty: 20 0RF acetaminophen 500 mg tablet 1,000 mg PO TID Qty: 90 3RF pantoprazole 40 mg tablet,delayed release (DR/EC) 40 mg PO DAILY Qty: 30 0RF dexamethasone 4 mg tablet 4 mg PO DAILY Qty: 2 0RF Continued hydrocortisone 2.5 % cream 1 applic topical QID PRN (Reason: itching) Qty: 30 12RF multivitamin [Daily Multi-Vitamin] 1 EACH tablet 1 ea PO DAILY Discharge Instructions Additional Instructions: Total Hip Discharge Instructions Activity: The most important activity is to walk. You should try to take short walks a few times a day. You have no restrictions on movement or positioning, but do not try to force what you do. You will find some stiffness and weakness with hip flexion (lifting your knee). Do not try to strengthen this too early, continue to practice walking and stairs and this will come. - Outpatient physical therapy can be helpful to help return you to a normal gait and improve your flexibility and strength. This can start around 2 weeks. For some patients, it?s not necessary. Usually this is determined at the time of discharge or at the first post-operative visit. - You should wear the KAREEM hose on both legs for 2 weeks. Dressing: Keep the surgical dressing in place for at least one week. After the first week it may be removed and replace with light gauze and tape or nothing. It may get wet after 3 days but avoid soaking the dressing. If it gets wet, just lightly pat dry. It is important to always keep some gauze between skin folds, especially when you are sitting. Spend some time with the wound exposed when you are lying flat as the incision does wrinkle onto itself. Medications: - You should take Tylenol and an anti-inflammatory Celebrex as your primary pain control medications. If the Celebrex is too expensive or not covered, please call the office for another alternative (Advil/Ibuprofen or Naproxen/Aleve). - You have been prescribed a stronger pain medication Tramadol for breakthrough pain, take as needed as prescribed. - You have also been prescribed a stomach acid reduction agent Pantoprozole to help reduce stomach acid and reflux. - You have also been prescribed Decadron to help with post-operative nausea and pain. You will take this for two days starting tomorrow. - You will be taking Aspirin 81mg twice a day for DVT prevention unless instructed otherwise. - If you have constipation you should take Colace or Miralax (both [id number]). It takes most people 3-4 days to have a bowel movement. Follow-up: 2 weeks If you have any acute concerns or questions, please do not hesitate to contact the office at [phone]. You may contact Dr. Bhatt with any questions after hours through the hospital at [phone] or on his cell phone at [phone]. Referrals: Aris Bhatt MD [ [facility] STAFF PHYSICIAN] - Equipment/Supplies: Walker Activity:: Activity as Tolerated Shower/Bathe:: 72 hours Diet:: As Tolerated DS: Diagnosis Discharge Diagnosis (1) Right hip impingement syndrome: Status: Acute
[2023-08-31] MEDS: ceFAZolin 2 GM/50 ML BAG IVPB (07:27)
--- NOTE | 2023-08-31 08:35 | ROE_ITS ---
Date of service: 08/31/23 Time of Service: 07:40 Operative Note Operative Note DATE OF PROCEDURE: 08/31/23 PRE-OP DIAGNOSIS: Right Hip Osteoarthritis POST-OP DIAGNOSIS: same PROCEDURE: Right Anterior Total Hip Arthroplasty with Intraoperative Navigation SURGEON: Aris Bhatt DATA MIGRATION LEAD: Amadeo De Leon ANESTHESIA TYPE: Spinal Refer to Anesthesia Record ESTIMATED BLOOD LOSS: 200 PATHOLOGY: none sent TOURNIQUET TIME: 0 COMPLICATIONS: None Patient was transported to: PACU Patient's condition: stable Implants: 1. Depuy [place] Acetabular Component, 50mm 2. Depuy Acetabular Liner, [id number] 3. Depuy Corail Standard 125 degree Collared Femoral Stem, Size 12 4. Depuy Altrx Ceramic Femoral Head, Size 32+5mm Indications: I have seen Suyapa in clinic for symptoms of hip arthritis, confirmed with radiographic findings and intra-articular injection. Suyapa has exhausted nonoperative methods and was having significant limitations in daily function and desired better function and less pain. I discussed the technical details of a hip replacement. I explained the risks of the procedure to include, but not limited to, bleeding, infection, pain, stiffness, fracture, damage to nerves and vessels, damage to muscles and tendons, loosening, instability, leg length inequality, need for repeat procedure, blood clot and cardiopulmonary demise. Despite these risks, Suyapa elected to proceed. Findings: There was notable chondromalacia of the acetabulum. Procedure Description: Suyapa was greeted in the preoperative holding area where the correct side was identified and marked. The consent was reviewed with the patient and signed. The history and physical was updated. All questions were answered. She was taken back to the operating room. A spinal anesthestic was then administered. The feet were wrapped with cast padding and Coban and then placed into the boot liners and then into the boots. Care was taken to protect the skin and make sure the heels were fully down and the boots were stable. The patient was then positioned onto the HANA table. Both legs were held in a neutral position. SCDs were applied. The patient was then slid down onto a peroneal post. Prophylactic antibiotics in the form of Cefazolin were administered. 1g of Tranxemic Acid was given intravenously within 30 minutes of incision. The right leg was then prepped with Chloraprep and draped in a standard fashion. A second prep with Chloraprep was performed prior to placement of a shower-curtain type drape with Iodine impregnated skin protection. A timeout to confirm correct identity, side and site, procedure, allergies, anesthesia, and medical concerns was performed. An obliquely oriented incision was made starting lateral to the ASIS and running distal over the Tensor Fascia Martha (TFL) muscle belly toward the fibular head, approximately 10cm. The skin and soft tissue was dissected sharply, through Melissa?s fascia, and to the fascia of the TFL. With the fascia and superior border of the IT band identified, the fascia was incised with a new knife just above any perforators from the IT band. The TFL muscle belly was bluntly dissected away from the fascia and moved laterally. The fat between TFL and rectus was identified to ensure the dissection was not within the TFL. Blunt dissection created space between abductors and the capsule and retractor was placed over the lateral femoral neck. The fibers of the rectus femoris tendon were identified and these were freed from the anterior capsule. A second cobra retractor was placed around the medial femoral neck. The TFL was further retracted laterally to show the deep fascia. Careful dissection through this layer identified three main crossing vessels of the lateral femoral circumflex. These were cauterized in multiple locations and then cut without any noticeable bleeding. The TFL was further released bluntly from the deep fascia to expose anterior hip capsule and fat The Nino orthopaedic retractor was then placed beneath the TFL and against sartorius and medial soft tissues to protect and retract the soft tissues. A T-capsulotomy was then performed starting at the superior lateral acetabulum and moving distally to the intertrochanteric ridge. These capsular flaps were tagged with a No. 1 Ethibond and elevated from within. The capsular flaps were released to the shoulder of the lateral neck and to the lesser trochanter to give excellent visualization of the proximal femur. A neck osteotomy was performed using an oscillating saw based on preoperative templates. This cut started in the shoulder and of the lateral neck and exited medially. The saw was at all times directed medially to avoid injury to the greater trochanter. Gross traction was applied to the leg and the osteotomy opened. The femoral head was removed with a corkscrew, making sure to protect the TFL on its exit. Traction was released after head removal. This was measured on the back table to determine the starting reamer size. An anterior retractor was placed over the anterior wall between capsule and labrum and attached to the Gripper retraction system. The femur was rotated to 90 degrees and medial capsule was fully released until the lesser trochanter was palpable and visible; the femur was returned to 30 degrees. A posterior retractor was placed similarly between capsule and labrum. This provided excellent visualization. The contents of the cotyloid fossa were removed with electrocautery and the labrum was removed with a knife. There was a notable floor osteophyte. There was significant chondromalacia of the superior acetabulum. Acetabular reaming began with a 44mm reamer. This first reaming was directed anterior to posterior and medial to get down to the true floor. This was inspected and reamed until the true floor was reached. The anterior retractor was then released and entry and exit was provided by traction on the capsular flaps. I then reamed sequentially up to a 50mm reamer where good fit was obtained. The larger reamers were oriented based on anatomical reference of the anterior and lateral yarbrough to ensure proper abduction and anteversion. Positioning and size was confirmed with the fluoroscopy. A 50mm Depuy [place] acetabular component was selected. The deep tissues were irrigated. The acetabular component was then impacted in a position of about 40-45 degrees of abduction and 15-20 degrees of anteversion, using the patient?s anatomy as the ultimate landmark. Fluoroscopy was used to confirm this. There was exc ellent combination welder of the acetabular component and the inserting handle was removed. The acetabular liner, Depuy 60l19in polyethylene liner, was inserted and lined up with the tines of the acetabular component. There was no soft tissue interposition. The liner was then impacted into position and confirmed to be well-seated. A portion of the alex-articular cocktail was then injected around the acetabulum into the capsule and periosteum. This cocktail consisted of 123mg of Ropivacaine, 0.25mg of Epinephrine, 0.04mg of Clonidine, and 15mg of Ketorolac, diluted to 50cc. The leg was rotated to 120 degrees. Any remaining medial capsule was released until the lesser trochanter was easily palpable. A retractor was placed medially. The lateral capsule was further released into the shoulder to allow access to the greater trochanter. A Rocha retractor was placed over the greater trochanter which allowed the trochanter to flip in front of the capsule for excellent exposure. The leg was brought down into maximal extension and 20 degrees of adduction while ensuring there was no impingement on the acetabulum. Any remnant capsule within the trochanter was released. Piriformis and obtura tor externis were identified and protected. There was excellent access to the proximal femur. The lateral neck remnant was removed with a rongeur. A blunt canal probe was used to identify the canal and trajectory for later broaching. A box osteotome initiated the broach course. A small curved rasp and a curved curette were used to work laterally. Broaching then began with a size 8 Corail broach. This was inserted manually around the trochanter and into the canal before mallet blows. The broach was seated to a few millimeters below the cut level based on the neck cut and the preoperative template. Sequential broaching was continued with the [employer] pneumatic broaching device until a tight fit was obtained with good rotational control of the femur. A trial standard 125 degree neck was inserted along with a +1 trial head. The leg was brought out of extension and adduction and then reduced with traction and internal rotation. The leg was stable anteriorly in a position of 30 degrees of extension and 90 degrees of external rotation. Fluoroscopy was used to ensure there was no fracture and the stem was seated well. Leg lengths were checked with an AP pelvis and pelvic reference points. SuperTruper navigation system was used to confirm appropriate positioning and leg length and offset. The stem trial was advanced 3-4 mm and the head was increased to a +5 to restore offset and leg length. Once content with the desired offset and leg lengths, the leg was brought back into extension, external rotation and adduction. The periosteum and surrounding tissue was injected with remaining portion of the alex-articular cocktail. The proximal femur was irrigated as well as the deep tissues. The Depuy Corail standard 125 degree collared stem, size 12, was then manually inserted into the proximal femur making sure to control rotation. It was then malleted into position with light blows, giving breaks to allow bone expansion and decrease risk of fracture. The selected Depuy Altrx Ceramic Head, size 32+5mm, was then placed onto the clean and dry trunnion and secured with impaction onto the tapered fit. The leg was brought back out of extension and adduction and reduced with traction and internal rotation. Stability was confirmed with no shuck at 90 degrees of external rotation and 30 degrees of extension. No impingement through range of motion arc. Final x-ray images were obtained with fluoroscopy to confirm adequate positioning and no intraoperative fracture. The deep tissues were thoroughly irrigated with Surgiphor, betadine solution. This was allowed to sit in the wound for 3 minutes before being thoroughly irrigated out with normal saline. The capsule was then reapproximated with the previously placed Ethibond sutures. The TFL fascia was finally closed with a No. 2 Stratafix, barbed suture. Deep tissues were then reapproximated with 0 Vicryl and a running 2-0 Vicryl. The skin was closed with a running 4-0 Monocryl in a subcuticular fashion. This was reinforced with skin glue. A Mepilex silver dressing was applied. At the end of the case, all counts were correct. Suyapa was transferred to the hospital bed without difficulty and suffering no apparent complication. Suyapa has a good prognosis. Physical therapy will start today and without restrictions, weight-bearing as tolerated. Aspirin 81mg BID will be used for D VT prophylaxis.
--- NOTE | 2023-08-31 08:40 | DI.RAD_ITS ---
Exam(s) XR HIP RT IN OR EXAM: XR HIP RT IN OR CLINICAL HISTORY: Right hip impingement syndrome. TECHNIQUE: 2D and realtime digital imaging was performed. COMPARISON: CR XR PELVIS AP from 08/16/2023 FINDINGS: Please see procedure note for details. Fluoro time: 29.4seconds RADIATION DOSE DELIVERED: Ka,r=2.17 mGy
[2023-08-31] MEDS: traMADol 50 MG TAB PO (09:42)
--- NOTE | 2023-08-31 09:51 | W.ANESPOSTOP ---
Postoperative Evaluation Date, Time and Location Date Performed: 08/31/23 Time Performed: 09:51 Patient Location: Day Surgery Unit Vital Signs Most Recent Imported Vital Signs: Most Recent Vital Signs Temp Pulse Resp BP Pulse Ox 36.2 C L 61 16 126/87 100 08/31/23 09:43 08/31/23 09:43 08/31/23 09:43 08/31/23 09:43 08/31/23 09:43 Pain Score Most Recent Pain Score: Most Recent Pain Score Pain Level 9 08/31/23 09:43 Assessment Mental Status: Awake (Alert & Oriented to Patient Baseline) Airway and Respiratory Function: Patent airway with normal (patient baseline) respiratory exam Cardiovascular Function: Hemodynamically Stable Hydration Status: Adequately Hydrated Nausea & Vomiting: No Nausea or Vomiting Pain: Pain is tolerable per patient Peripheral Nerve Block: Patient did not receive a nerve block
--- NOTE | 2023-08-31 10:10 | IN_ITS ---
PT Notes Visit Reasons: R THR Physical Therapy Day Surgery Initial Evaluation Date: 08/31/2023 Referring Doctor: JOHANA Carreon PT Orders: PT CONSULT: S/P Ortho Surgery Precautions: WBAT on the R LE with AD. Patient Profile/Admitting Diagnosis: Patient is a 77-year-old female with R hip impingement syndrome and is S/P right anterior total hip arthroplasty on postoperative day 0. PMHX: Medical History Diverticulitis of colon (without mention of hemorrhage) 08/21 DIVERTICULITIS W/ MICROPERFORATION OF RECTOSIGMOID; EXPL. LAP W/ IRRIGATION & DRAIN PLACED; POSTOP C. DIFFICILE; DR. JETT. History of basal cell carcinoma of skin Mass of uterine adnexa (~09/2021) 09/2021-benign Pelvic pain RLQ abdominal pain Unspecified hemorrhoids / DIVERTICULITIS W/ MICROPERFORATION OF RECTOSIGMOID; EXPL. LAP W/ IRRIGATION & DRAIN PLACED; POSTOP C. DIFFICILE; DR. JETT. Surgical History Appendectomy (~08/2009) section Cholecystectomy (03/29/16) Hemorrhoidectomy History of esophagogastroduodenoscopy (EGD) (~10/24/21) Hx of arthroscopy of right knee flipped meniscusHx of colonoscopy (~10/24/21) Hx of exploratory laparotomy Hx of hernia repair Ligation of fallopian tube Social History/Home Situation: Lives with Anant in a private home with 3 steps to enter with rails on both sides. Independent of all aspects of ADLs prior to surgery although has had worsening ability to perform mobility ADLs due to increasing pain in the right hip. Equipment Owned/DME: [facility] Subjective: Reported 8 out of 10 pain in in the right hip at rest and with movement. Complained of worsening dizziness after having walked to the bathroom and after having completed exercises. Objective: General Observation: Mepilex Ag over surgical incision. TEDS to be legs. Anant present in room throughout session. Mental Status: A and O x 4 Pain: As above ROM: Right Lower Extremity: Hip flexion allows up to about 110 degrees with pain at end of range. Hip abduction WFL. Knee flexion WFL. Ankle dorsiflexion WFL. Ankle plantarflexion WFL. Left Lower Extremity: Hip flexion WFL. Hip abduction WFL. Knee flexion WFL. Ankle dorsiflexion WFL. Ankle plantarflexion WFL Strength: Right Lower Extremity: Hip flexors 3-/5. Hip abductors 4-/5. Knee flexors 5/5. Knee extensors 4-/5. Ankle dorsiflexors 5/5. Ankle plantarflexors 5/5. Left Lower Extremity:Hip flexors 5/5. Hip abductors 5/5. Knee flexors 5/5. Knee extensors 5/5. Ankle dorsiflexors 5/5. Ankle plantarflexors 5/5. Sensation: Intact as to pain and light pressure in B LE Bed Mobility/Transfers: Minimal cueing provided for use of B hands as needed for support, movement sequence, AD management, and posture to reduce fall risk and minimize pain report Supine to sit contact guard assist Sit to stand contact guard assist Stand to sit contact guard assist Bed to chair contact guard assist Gait: Reported increased pain and right hip to 8/10 and worsening dizziness after walking from bed to bathroom and after doing seated exercises. Deferred further ambulation training for safety reasons. Nurse Gomez updated. Patient was seen the second time 1.5 hours later and was able to tolerate about 20 feet of ambulation before she reported exacerbation of dizziness again. Patient's symptom resolved on the third of visit half an hour later which allowed her to cover a distance of 150 feet using front-wheeled walker with reciprocal swing through heel-toe gait pattern using front-wheeled walker and standby assist. Pain also abated to 4-5/10 in the same area. Balance: Static Sitting: Normal Dynamic Sitting: Normal Static Standing: Fair Dynamic Standing: Fair Special Tests: Mobility Limitations Standardized Measure [facility] AM-PAC 6 clicks Basic Mobility Inpatient Short Form: Raw Score: 18 CMS Score: 47% deficit Informed Consent/Education: Patient instructed in purpose of PT consult. Packet containing FELICIANO exercise protocol has been given to patient. Education and training on initial set of exercises that can be done at home have been completed with patient. Trained patient with correct performance of exercises below to maximize motor control, joint flexibility, soft tissue extensibility of the R hip musculature to facilitate return to independent functional mobility performance. Access Code: [email or web address] URL: [email or web address] Date: 08/31/2023 Prepared by: Thania Montejo Exercises - Gluteal Sets - 1 x daily - 7 x weekly - 1 sets - 10 reps - 5 hold - Supine Heel Slide - 1 x daily - 7 x weekly - 1 sets - 10 reps - 5 hold - Supine Ankle Pumps - 1 x daily - 7 x weekly - 1 sets - 10 reps - 5 hold - Seated March - 1 x daily - 7 x weekly - 1 sets - 10 reps - 5 hold - Seated Long Arc Quad - 1 x daily - 7 x weekly - 1 sets - 10 reps - 5 hold ASSESSMENT: Patient reports the use of a front-wheeled walker for all mobility ADL performance to maximize independence and reduce fall risk. Patient presents with clinical signs and symptoms consistent with current/admitting diagnoses that have resulted to mobility limitations, gait instability, generalized weakness, and impairment of motor control as demonstrated by the following impairment level findings: 1. Decreased strength to R hip major muscle groups 2. Impaired standing balance 3. Limitation of joint range of motion in R hip Impairments are contributing to the following functional limitations: 1. Inability to safely ambulate without assistive device 2. Increase completion time for mobility ADL performance 3. Increased fall risk Patient is assessed as a 15027 moderate complexity based on the following: History: 77-year-old female with impairment level findings, functional limitations, and past medical history as indicated above Examination: Demonstrable impairment in strength, balance, and mobility level with underlying impairments and functional limitations as documented above Presentation: Evolving Decision Makin moderate complexity Goals: N/A. PT evaluation and 1-2 treatment sessions only for functional mobility training using recommended AD and for HEP instruction. Plan of Care/Treatment Plan: N/A. PT evaluation and 1-2 treatment session only for functional mobility training using recommended AD and for HEP instruction. DISCHARGE RECOMMENDATIONS: Home when medically cleared by orthopedic surgeon. Recommend outpatient PT services in order to optimize functional mobility outcomes and facilitate return to independent community ambulation without an assistive device. TREATMENT CODE/TIME: 9716 2 x 28 minutes for 1 unit, 9753 0 x 23 minutes for 2 units (10:10-10:38; 12:13-12:25; 12:58-13:09). Thank you for the opportunity to participate in the care of this patient. Please sign an return this page within 30 days if you agree with the above POC. Thank you! Physician Signature Date [facility] Thank you for the opportunity to participate in the care of this patient. Thania Montejo PT, DPT, CLT [facility] [place], [place]
[2023-08-31] MEDS: oxyCODONE 5 MG TAB PO (11:05)
--- NOTE | 2023-08-31 11:06 | NUR.NOTE ---
C/O increasing pain during P.T. Anesthesia made aware. One time dose of Oxycodone ordered and given with effect pending. Nursing Note:
[2023-08-31] MEDS: Ondansetron 4 MG/2 ML VIAL IVP (12:24)
== END 2023-08-31 13:39 | disposition home or self-care (01) ==
PROVIDERS: PCP Nurse Practitioner Family; Visit Provider Student in an Organized Health Care Education/Training Program
PROC: (CPT 27130; principal; 2023-08-31 07:30)
DX: M16.11 Unilateral primary osteoarthritis, right hip (principal)
CPT/HCPCS: 20985; 27130; C1776; 97162; 97530; 73501; J0690; J1100; J2001; J2371; J2401; J2405; J2704

== ENCOUNTER 2023-09-13 15:24 | Outpatient (CLI) | payer MEDICARE, BC, SELFPAY ==
--- NOTE | 2023-09-13 10:30 | DI.RAD_ITS ---
Exam(s) XR HIP RT COMPLETE AP PELVIS EXAM: XR HIP RT COMPLETE AP PELVIS CLINICAL HISTORY: 1ST POST OP S/P R FELICIANO. TECHNIQUE: 2D digital imaging was performed. Three images were obtained. AP pelvis and AP and later al hip views were obtained. COMPARISON: CR XR PELVIS AP from 08/16/2023 XA XR HIP RT IN OR from 08/31/2023 FINDINGS: BONES: There are stable post operative changes of a right total hip replacement present. No fracture or dislocation. JOINTS: The orthopedic hardware is in good position. No evidence of hardware loosening. SOFT TISSUE: Normal. IMPRESSION: Stable right total hip replacement. DATA REPOSITORY: RADIATION DOSE DELIVERED:
== END 2023-09-13 15:25 | disposition home or self-care (01) ==
LOC: DIORS 15:25
PROVIDERS: PCP Nurse Practitioner Family; Visit Provider Student in an Organized Health Care Education/Training Program
DX: Z96.641 Presence of right artificial hip joint (principal); Z47.1 Aftercare following joint replacement surgery
CPT/HCPCS: 73502

== ENCOUNTER → 2023-10-18 08:36 | Outpatient (BNVA) | payer MEDICARE, BC, SELFPAY | PROVIDERS: PCP Nurse Practitioner Family; Visit Provider Student in an Organized Health Care Education/Training Program | DX: Z47.1 Aftercare following joint replacement surgery (principal); Z96.641 Presence of right artificial hip joint ==

== ENCOUNTER 2023-11-19 15:45 | Outpatient (REF) | payer MEDICARE, BC, SELFPAY ==
--- NOTE | 2023-11-19 15:20 | SKI_PTH ---
PATIENT: Suyapa Oropeza LOC: [facility] U#:[id number] AGE/SX: 78/F ROOM: RE11/19/[address]: JOHANA Snow : 1945 BED: DIS: 11/19/2023 SPEC #: [id number] RECD: 11/19/23 18:14 STATUS: YURIY REQ #: [id number] MARCELLA: 11/19/23 15:[address]: Harris Aldrich DEPT: Surgical Specimen RECD BY: July Lopez ENTERED: 11/19/23 18:14 SP TYPE: SKI OTHR DR: Sallie Grubbs, JUNI Tissues: 1 - SKIN BIOPSY(SHAVE/PUNCH) Procedures: SKIN LEVEL 4 Comments: [id number]
== END 2023-11-19 15:46 | disposition home or self-care (01) ==
LOC: LBN 15:45
PROVIDERS: PCP Nurse Practitioner Family; Visit Provider Physician Assistant
DX: D22.72 Melanocytic nevi of left lower limb, including hip (principal)
CPT/HCPCS: 88305

== ENCOUNTER → 2023-11-25 00:01 | Outpatient (CLI) | payer MEDICARE, BC, SELFPAY ==
--- NOTE | 2023-11-25 08:45 | DI.MAMMO_ITS ---
Exam(s) MAMMO SCREENING EXAM: MAMMO SCREENING CLINICAL HISTORY: screening z12.39 TECHNIQUE: Bilateral full field digital CC and MLO mammographic images were obtained with 3D tomosyn thesis and utilizing computer aided detection (CAD). COMPARISON: Available for comparison. FINDINGS: Masses/Architectural Distortion: None seen. Microcalcifications: No suspicious pleomorphic-type are seen. Skin Thickening/Nipple Retraction: None. IMPRESSION: 1. No significant interval change with no specific features of malignancy noted. 2. Unless there is more urgent need, screening mammography is recommended, as per [employer] guidelines. BI-RADS Category 1 - Negative Breast Density - Category C - Heterogeneously dense Breast density category C or D implies that the patient has dense breast tissue. Dense breast tissue is very common and is not abnormal but dense breast tissue can make it harder to find cancer on a ma mmogram. Also, dense breast tissue may increase their breast cancer risk. This information about the result of the mammogram report was provided to the patient to raise their awareness. Use this report when you speak with the patient about their risks for breast cancer, which includes their family hist ory. At that time, you may recommend for more screening tests (Ultrasound or MRI) as they might be us eful based on their risk. A negative radiographic report should not delay biopsy if a dominant or clinically suspicious mass is present. Up to ten percent of cancers are not identified on mammography. A negative report may reinforce clinical impression. Adenosis and dense breasts may obscure an underlying neoplasm. False positive reports average 6 to 10%. Patient will receive a letter notifying them of these results.
== END ==
PROVIDERS: PCP Nurse Practitioner Family; Visit Provider Nurse Practitioner Family
DX: Z12.31 Encounter for screening mammogram for malignant neoplasm of breast (principal); R92.333 Mammographic heterogeneous density, bilateral breasts
CPT/HCPCS: 77063; 77067

== ENCOUNTER → 2024-02-21 09:57 | Outpatient (BNVA) | payer MEDICARE, BC, SELFPAY | PROVIDERS: PCP Nurse Practitioner Family; Referring Provider Nurse Practitioner Family; Visit Provider Surgery | DX: K59.00 Constipation, unspecified (principal); K57.30 Diverticulosis of large intestine without perforation or abscess without bleeding; K62.3 Rectal prolapse; K44.9 Diaphragmatic hernia without obstruction or gangrene | CPT/HCPCS: 99214 ==

== ENCOUNTER 2024-08-31 15:31 | Outpatient (CLI) | payer MEDICARE, BC, SELFPAY ==
--- NOTE | 2024-08-31 08:15 | DI.RAD_ITS ---
Exam(s) XR HIP RT AP LAT ONLY EXAM: XR HIP RT AP LAT ONLY INDICATION: ANNUAL F/U R FELICIANO. COMPARISON: CR XR HIP RT COMPLETE AP PELVIS from 09/13/2023 TECHNIQUE: 2D digital imaging was performed. Two views. FINDINGS: Stable alignment of right hip prosthesis. No abnormal surrounding bony lucencies. DATA REPOSITORY: RADIATION DOSE DELIVERED:
== END 2024-08-31 15:32 | disposition home or self-care (01) ==
LOC: DIORS 15:31
PROVIDERS: PCP Nurse Practitioner Family; Visit Provider Student in an Organized Health Care Education/Training Program
DX: Z47.1 Aftercare following joint replacement surgery (principal); Z96.651 Presence of right artificial knee joint
CPT/HCPCS: 99213; 73502

== ENCOUNTER 2024-09-18 03:28 | Outpatient (CLI) | payer MEDICARE, BC, SELFPAY ==
[2024-09-18 09:03] LABS: ALT 24 U/L (14-59); AST 18 U/L (15-37); Albumin 3.8 g/dL (3.4-5.0); Alkaline Phosphatase 85 U/L (46-116); BUN 19 mg/dL (7-18); Bilirubin, Total 0.5 mg/dL (0.2-1.0); CREATININE 0.7 mg/dL (0.55-1.02); Calcium 9.2 mg/dL (8.5-10.1); Calculated LDL 134 mg/dL (<100); Chloride 105 mmol/L (98-107); Cholesterol 260 mg/dL (<200); Estimated GFR 89.58 (mL/min/1.73m2); Glucose 107 mg/dL (74-106); HDL Cholesterol 111 mg/dL (>or=50); Potassium 4.1 mmol/L (3.5-5.1); Sodium 141 mmol/L (136-145); Total Protein 7.5 g/dL (6.4-8.2); Triglyceride 79 mg/dL (<150)
[2024-09-18 09:33] LABS: Hemoglobin A1C 5.7 % (<5.7)
== END 2024-09-18 03:29 | disposition home or self-care (01) ==
PROVIDERS: PCP Nurse Practitioner Family; Visit Provider Nurse Practitioner Family
DX: R73.03 Prediabetes (principal); E78.5 Hyperlipidemia, unspecified; M81.0 Age-related osteoporosis without current pathological fracture
CPT/HCPCS: 36415; 80053; 80061; 93227; 83036; 93225

== ENCOUNTER 2024-09-18 08:07 | Outpatient (RCR) | payer MEDICARE, BC, SELFPAY ==
--- NOTE | 2024-09-26 15:39 | W.HOLTRPT ---
Date of service: 09/26/24 Time of Service: 15:39 Holter Monitor Report Referring Provider:: Sallie Grubbs Indications:: Palpitations Holter Monitor Note: This is a 48-hour Holter monitor. Rhythm throughout the sinus with an average heart rate of 80. Minimum was 50, maximum 141. There were occasional premature ventricular contractions. There were rare atrial premature beats. A total of 9 self-limited atrial runs occurred. The longest of these was 11 beats in duration. There was no atrial fibrillation, no high-grade AV block, no pauses greater than 3 seconds. No symptoms were reported
== END 2024-10-11 23:59 | disposition home or self-care (01) ==
LOC: CARDOPNVT 08:07
PROVIDERS: PCP Nurse Practitioner Family; Visit Provider Internal Medicine Cardiovascular Disease
DX: I49.9 Cardiac arrhythmia, unspecified (principal)
CPT/HCPCS: 93227; 93225; 93226

== ENCOUNTER 2024-10-05 01:22 | Outpatient (CLI) | payer MEDICARE, BC, SELFPAY ==
--- NOTE | 2024-10-05 08:30 | DI.US_ITS ---
APPROVED REPORT EXAM: Comprehensive 2D, Doppler, and color-flow Echocardiogram Patient Location: Out-Patient Lead Custodian: Nelson Michael RDCS (AE) Indications: Murmur Conclusion Normal left ventricular wall thickness and chamber size. Ejection fraction is 60%. Wall motion is n ormal Normal right ventricular size and function Both atria are normal in size Aortic valve is trileaflet with mild regurgitation Normal mitral valve with mild regurgitation Tricuspid valve with mild regurgitation. Estimated right ventricular systolic pressure is 35 mmHg Wall motion Left Ventricle The left ventricle is normal size. Left ventricular systolic function is normal. The left ventricular ejection fraction is within the normal range. There is normal left ventricular wall thickness. There is normal LV segmental wall motion. The left ventricular diastolic function is normal. There is no v entricular septal defect visualized. LVEF is 60%. Right Ventricle The right ventricle is normal size. The right ventricular systolic function is normal. Atria The left atrium size is normal. The right atrium size is normal. The interatrial septum is intact wit h no evidence for an atrial septal defect. Aortic Valve The aortic valve is normal in structure. There is no aortic valvular stenosis. Mild aortic regurgitat ion. Mitral Valve The mitral valve is normal in structure. No evidence of mitral valve stenosis. Mild mitral regurgitat ion. Tricuspid Valve The tricuspid valve is normal in structure. There is no tricuspid valve stenosis. Mild tricuspid regu rgitation. The RVSP is 35 mmHg. Pulmonic Valve The pulmonary valve is normal in structure. There is no pulmonic valvular stenosis. Mild pulmonic reg urgitation. Great Vessels The aortic root is normal in size. The ascending aorta is normal Aortic arch is normal in caliber. IV C is normal in size and collapses >50% with inspiration. Pericardium There is no pericardial effusion. 2D Dimensions IVSD d PLAX 0.90 cm F: 0.6-1.0 Ao Root d 3.22 cm F: 2.7 - 3.3 LVPW d PLAX 0.87 cm F: 0.6 - 1.0 Ao Asc Diam d 3.30 cm F: 2.3 - 3.1 LVID d PLAX 5.01 cm F: 3.8 - 5.2 LVDs 3.41 cm F: 2.2 - 3.5 LV EF Teichholz 59.7 % FS 31.90 % LV EDV (Teich) 118.8 mL LV ESV (Teich) 47.9 mL Stroke Vol Index (Teich) 44.64 M-Mode TAPSE 1.69 cm (M/F) >1.7 Auto EF LV EDV A4C 83.5 mL LV EDV A2C 80.0 mL LV EDV BP 84.4 mL LV ESV A4C 33.8 mL LV ESV A2C 32.0 mL LV ESV BP 32.3 mL LVEF(%) A4C 59.6 % LVEF(%) A2C 60.0 % LVEF(%) BP 61.7 % LV SV A4C 49.7 ml LV SV A2C 48.0 ml LV SV BP 52.1 ml LV CO A4C 3.6 L/min LV CO A2C 3.2 L/min LV CO BP 3.4 L/min HR A4C 71.86 BPM HR A2C 67.42 BPM LV EDV Index (BP) LA Volume LA Length A4C 3.0 cm LA Length A2C 3.7 cm LA Area A4C s 9.36 cm2 LA Area A2C s 10.91 cm2 LA Vol A4C A-L 24.45 mL LA Vol A2C A-L 27.07 mL LA Vol Biplane A-L 28.5 mL LA Vol/BSA A4C A-L LA Vol/BSA A2C A-L LA Vol/BSA BP A-L 17.9 mL/m2 LA Vol A4C MOD 23.8 mL LA Vol A2C MOD 24.2 mL LA Vol BP MOD 26.3 mL RA Volume RA Area A4C 10.9 cm2 RA ESV A4C (A-L) 24.5mL RA Vol/BSA A4C A-L RA Length A4C 4.1 cm RA ESV A4C (MOD) 23.7mL LV Diastology MV E' medial 0.043 (>0.07 m/s) MV E Vmax 0.45 (0.4-1.3 m/s) MV E/E' MED 10.50 (<14) MV A Vmax 0.65 (0.4-1.3 m/s) MV E' lateral 0.072 (>0.1 m/s) E/A Ratio 0.7 MV E/E' LAT 6.26 (<14) MV E' Average 0.057 m/s MV E/E'(average) 7.84 Aortic Valve AoV Vmax 1.12 m/s LVOT Vmax 0.85 m/s AoV Peak Grad 36.1 mmHg LVOT Peak Grad 2.9 mmHg AoV Area (Vmax) 2.30 cm2 LVOT VTI 0.212 m AoV VTI 0.242 m LVOT Mean Grad 1.7 mmHg AoV Mean Jarred. 0.81 m/s LVOT SV 64.63 mL AoV Mean Grad 2.9 mmHg LVOT Diam s 1.95 cm AoV Area (VTI) 2.67 cm2 AV Regurg Peak Gr. 5.01 mmHg Velocity Ratio 0.76 AR Decel Arthur 3.0m/sec2 AR DT 1378 msec AR PHT 400 msec AR Vmax 4.10 m/s Mitral Valve MV DT 223 (160-240 msec) Pulmonary Valve PV Vmax 0.64 (0.5-1.5 m/s) RVOT Vmax 0.59 m/s PV Peak Grad 1.6 mmHg RVOT Peak Gr. 1.4 mmHg PV Mean Jarred 0.47 m/s RVOT VTI 0.138 m PV Mean Grad 1.0 mmHg RVOT Mean Gr. 0.8 mmHg Tricuspid Valve RA Pressure 3.00 mmHg TR Vmax 2.82 m/s TR Peak Grad 31.7 mmHg RVSP (TR) 34.8 mmHg
== END 2024-10-05 01:42 ==
LOC: DI 01:22
PROVIDERS: PCP Nurse Practitioner Family; Visit Provider Internal Medicine Cardiovascular Disease
DX: R01.1 Cardiac murmur, unspecified (principal); I34.0 Nonrheumatic mitral (valve) insufficiency
CPT/HCPCS: 93306

== ENCOUNTER 2024-11-24 16:02 | Outpatient (REF) | payer MEDICARE, BC, SELFPAY ==
--- NOTE | 2024-11-24 15:30 | SKI_PTH ---
PATIENT: Suyapa Oropeza LOC: [facility] U#:[id number] AGE/SX: 79/F ROOM: RE11/24/[address]: JOHANA Snow : 1945 BED: DIS: 11/24/2024 SPEC #: [id number] RECD: 11/27/24 12:39 STATUS: YURIY REQ #: [id number] MARCELLA: 11/24/24 15:[address]: Harris Aldrich DEPT: Surgical Specimen RECD BY: July Lopez ENTERED: 11/27/24 12:39 SP TYPE: SKI OTHR DR: Sallie Grubbs, JUNI Tissues: 1 - SKIN BIOPSY(SHAVE/PUNCH) Procedures: SKIN LEVEL 4 Comments: [id number]
== END 2024-11-24 16:03 | disposition home or self-care (01) ==
LOC: LBN 16:02
PROVIDERS: PCP Nurse Practitioner Family; Visit Provider Physician Assistant
DX: D22.9 Melanocytic nevi, unspecified (principal)
CPT/HCPCS: 88305